=== PATIENT | male | born 1945 | race Caucasian/White ===

== ENCOUNTER 2022-11-26 06:31 | Day surgery (SDC) | payer MEDICARE, BC, SELFPAY ==
--- NOTE | 2022-11-26 06:02 | ANES.PREOP_ITS ---
General Info Date of Service Date Performed: 11/26/22 Height: 5 ft 10 in Weight: 81.647 kg Body Mass Index (BMI): 25.8 Surgical Procedure: Operation Date: 11/26/22 07:40 Proposed Procedure Side Surgeon p Cataract Extraction with IOL Implant Left Jered Merino MD Meds Allergies and Home Medications Allergies Allergy/AdvReac Type Severity Reaction Status Date / Time lisinopril Allergy Unknown Unverified 11/25/22 12:18 minoxidil Allergy Unknown Other (See Unverified 11/25/22 12:18 Comment) tacrolimus Allergy Unknown Unverified 11/25/22 12:18 Home Medication Medication Instructions Recorded apixaban 5 mg tablet (Eliquis) 2.5 mg PO BID 11/25/22 calcitriol 0.25 mcg capsule 0.25 mcg PO DIRECTED 11/25/22 calcium carbonate 500 mg calcium 1,000 mg PO TID 11/25/22 (1,250 mg) tablet carvedilol 25 mg tablet 25 mg PO BID 11/25/22 cholecalciferol (vitamin D3) 25 25 mcg PO DIRECTED 11/25/22 mcg (1,000 unit) tablet (Vitamin D3) cyanocobalamin (vitamin B-12) 1,000 mcg PO DAILY 11/25/22 1,000 mcg tablet,extended release icosapent ethyl 1 gram capsule 2 g PO BID 11/25/22 (Vascepa) lidocaine HCl 4 % topical patch 1 patch topical DAILY 11/25/22 losartan 25 mg tablet 25 mg PO DAILY 11/25/22 multivitamin 1 tab PO DAILY 11/25/22 pravastatin 10 mg tablet 10 mg PO DAILY 11/25/22 sertraline 100 mg tablet 100 mg PO DAILY 11/25/22 sodium bicarbonate 650 mg tablet 1,300 mg PO TID 11/25/22 triamcinolone acetonide 0.1 % 1 applic topical DIRECTED 11/25/22 topical cream Current Visit Medications: Current Medications Generic Name Dose Route Start Last Admin Trade Name Freq PRN Reason Stop Dose Admin Acetaminophen 1,000 mg 11/26/22 06:00 Acetaminophen 500 Mg Tab PO 12/26/22 05:59 Q4H PRN PRN Balanced Salt Solution 500 ml 11/26/22 06:00 Balanced Salt Soln.-Plus 500 Ml Bag OP 12/26/22 05:59 DIRECTED [facility] Miscellaneous Medication 0 ml 11/26/22 06:00 Prednisolone 1%, Moxifloxacin 0.5%, Nepafenac 0.1% 5ml Btl OS 12/26/22 05:59 DIRECTED [facility] Miscellaneous Medication 0 ml 11/26/22 06:00 Tropicam./Phenyleph. 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 Depressive disorder Diabetes mellitus Diastolic heart failure End stage renal disease Hypertensive disorder Hypertriglyceridemia Hypoalbuminemia Mild aortic regurgitation Mitral valve regurgitation mild-moderate Myocardial infarction 05/14/22 Nicotine dependence Overweight PAF (paroxysmal atrial fibrillation) Pericardial effusion Renal artery stenosis Smoker Surgical History Surgical History History of ankle surgery History of esophagogastroduodenoscopy (EGD) History of hip surgery History of thoracentesis Hx of cardiac catheterization 05/21/22 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 Tobacco Smoking/Tobacco Use Status: Former Tobacco Use Alcohol Alcohol Intake: former Substance Use Substance use: Never Substance use type: does not use Vital Signs and Lab Results Lab Results Blood Type / Crossmatch: No Data to Display Complete Blood Count: No Data to Display Complete Metabolic Panel: No Data to Display Liver Function Panel: No Data to Display Coagulation Panel: No Data to Display Cardiac Panel: No Data to Display Arterial Blood Gas: No Data to Display Venous Blood Gas: No Data to Display Pancreas Panel: No Data to Display Thyroid Panel: No Data to Display Infectious Disease: No Data to Display Blood Cultures: No Data to Display Toxicology Panel: No Data to Display Imaging and Studies Imaging and Studies Study information below may be from another EMR and interpreted by another provider. Please see original notes in EMR for more complete details. Echocardiogram Summary: 11/04/22 EF 58%, mild and AR Mild to mod MR Anesthesia Assessment and Plan Anesthesia History Personal History: No History of Anesthesia Complications Family History: No Family History of Anesthesia Complications Exercise Tolerance Exercise Tolerance: Metabolic Equivalents>4 Pertinent Negatives Pertinent Negatives: No Major Cardiovascular Symptoms or Complaints and No Major Pulmonary Symptoms or Complaints Cardiac & Pulmonary Exam Cardiac Exam: Normal S1/S2 Heart Sounds Pulmonary Exam: Clear Bilateral Breath Sounds Implantable Cardiac Device Does patient have a Pacemaker or an ICD?: No Airway Exam Known Difficult Airway: No Mallampati Class: 2 Mouth Opening: Normal (> 3cm) Thyromental Distance: Greater than 3 cm Neck Range of Motion: Full ROM Neck Circumference: Normal Teeth Condition: Normal Dentition and Removable Dentures/Plates Upper ASA Classification ASA Score: ASA 3 Emergency Case?: No NPO Status NPO Status: NPO Clears >2 hours, Solids >8 hours Anesthesia Plan Resuscitation Status: Full Code Anesthesia Technique: MAC Anesthesia Airway Planned: Natural Airway Monitors Used: Standard Monitors Preoperative Comments:: [place] with cardiac cath 05/21/22, pericardial effusion, stage 5 kidney disease with dialysis 3x/wk, liver transplant for ETOH cirrhosis 2013 MKO given
[2022-11-26 06:30] VITALS: BP 129/54; PULSE 56; RESP 18; TEMP 36.7; O2SAT 97
[2022-11-26] MEDS: Tropicam./Phenyleph. (1/2.5%) 5 ML BTL OS ×3 (06:50→07:00)
[2022-11-26 07:14] VITALS: BMI 25.8
[2022-11-26 07:26] VITALS: BP 129/54; PULSE 56; RESP 18; TEMP 36.7; O2SAT 97
[2022-11-26] MEDS: Tetracaine 0.5% 4 ML BTL OS (07:32)
[2022-11-26] MEDS: Duovisc Viscoelastic System EACH 1 EACH (07:35)
[2022-11-26] MEDS: Lidocaine 1% Pres-Free 5 ML VIAL (07:35)
[2022-11-26] MEDS: Phenylephrine/Lidocaine (15/10) MG/ML 1 ML VIAL (07:35)
[2022-11-26] MEDS: Balanced Salt Soln.-PLUS 500 ML BAG OP (07:35)
[2022-11-26] MEDS: Povidone-Iodine Ophth 30 ML BTL (07:37)
--- NOTE | 2022-11-26 08:03 | PDOC.DSDIS_ITS ---
Date of service: 11/26/22 Time of Service: 08:03 Discharge Plan Disposition Patient Disposition: Home Discharge Details Attending Provider: Jered Merino Primary Care Provider: Sd Art [place] Meds and New Rx's Prescriptions: No Action multivitamin Tablet 1 tab PO DAILY cyanocobalamin (vitamin B-12) 1,000 mcg Tablet Extended Release 1,000 mcg PO DAILY carvedilol 25 mg Tablet 25 mg PO BID sertraline 100 mg Tablet 100 mg PO DAILY triamcinolone acetonide 0.1 % Cream 1 applic TOPICAL DIRECTED pravastatin 10 mg Tablet 10 mg PO DAILY calcium carbonate [Calcium 500] 500 mg calcium (1,250 mg) Tablet 1,000 mg PO TID sodium bicarbonate 650 mg Tablet 1,300 mg PO TID losartan 25 mg Tablet 25 mg PO DAILY calcitriol 0.25 mcg Capsule 0.25 mcg PO DIRECTED cholecalciferol (vitamin D3) [Vitamin D3] 25 mcg (1,000 unit) Tablet 25 mcg PO DIRECTED icosapent ethyl [Vascepa] 1 gram Capsule 2 g PO BID Eliquis 5 mg Tablet 2.5 mg PO BID lidocaine HCl 4 % Adhesive Patch,Medicated 1 patch TOPICAL DAILY Discharge Instructions Stand Alone Forms: Post-op Topical Cataract, Gloria Tavares (DSU) Discharge Orders Discharge Orders: Discharge Order (Routine); Ordered 11/26/22 Ordered By: Jered Merino DS: Diagnosis Discharge Diagnosis (1) Posterior subcapsular age-related cataract of left eye: Status: Resolved (2) Cortical age-related cataract, left eye: Status: Resolved (3) Nuclear age-related cataract, left eye: Status: Resolved
[2022-11-26 08:04] VITALS: BP 117/41; PULSE 56; RESP 18; TEMP 36.8; O2SAT 97
--- NOTE | 2022-11-26 08:04 | ROE_ITS ---
Date of service: 11/26/22 Time of Service: 08:05 Operative Note Operative Note DATE OF PROCEDURE: 11/26/22 PRE-OP DIAGNOSIS: Nuclear/cortical/posterior subcapsular cataract, left eye Poorly dilating pupil, left eye POST-OP DIAGNOSIS: same PROCEDURE: Cataract extraction by phacoemulsification with intraocular lens implantation, left eye, with pupillary expansion device SURGEON: Jered Merino ANESTHESIA TYPE: Local By Surgeon and MAC Refer to Anesthesia Record ESTIMATED BLOOD LOSS: 0 PATHOLOGY: none sent COMPLICATIONS: None Patient was transported to: same day Patient's condition: stable Implants: [employer] / [employer] Tecnis Eyhance DIB00 Indications: Progressive decreased vision, left eye Poorly dilating pupil, left eye. Procedure Description: CATARACT SURGERY OPERATIVE REPORT PREOPERATIVE DIAGNOSIS: 1. Nuclear/cortical/posterior subcapsular cataract, left eye 2. Poorly dilating pupil, left eye POSTOPERATIVE DIAGNOSIS: Same OPERATION: 1. Cataract extraction using phacoemulsification with posterior chamber intraocular lens implant, left eye. 2. Pupillary dilation and iris stabilization using Malyugin Ring IOL; IOL Front Desk Agent/Model: [employer] / SUDHEER Tecnis Eyhance DIB00 IOL Power: + 22.5 diopters IOL Serial Number: [id number] Optic Diameter: 6.0 mm Haptic/Overall Diameter: 13.00 mm PHACO INFO: Stefan [employer]Net[employer]urion Vision System with OZil and Active [employer]uidics Cumulative Dispersed Energy (CDE): 7.62 seconds SURGEON: Jered Merino MD, DIPESH ANESTHESIA: Monitored Anesthesia Care (MAC), with local sub-tenon's anesthetic infiltration COMPLICATIONS: None SPECIMENS: None INDICATIONS FOR PROCEDURE: The patient is a 77-year-old male with history of diminished visual acuity in his left eye secondary to the development of nuclear/cortical/posterior subcapsular cataract. He is significantly symptomatic that he desires cataract surgery and attempt to improve and maximize his vision. The option of cataract surgery was offered to the patient and he wished to proceed. See office notes for detailed information. PROCEDURE: The correct surgical eye was identified and marked as the left eye and the pupil was dilated in the preoperative area using mydriatics, cycloplegics, and NSAIDS (except in aspirin allergic patients). The dilated pupil size was 3.0 mm. Oral sedation was administered in the form of an Imprimis MKO Melt (midazolam 3mg/ketamine 25mg/ondansetron 2mg). The patient was brought to the operating room where cardiopulmonary monitoring was instituted and surgical time-out was performed, confirming the correct operative eye and IOL power. Topical anesthesia was administered and ophthalmic povidone-iodine 5% was instilled into the conjunctival fornices. The radha-ocular area was prepped with Betadine 10% solution and draped in the usual sterile fashion for intraocular surgery, including an aperture drape. A Tegaderm transparent film dressing was cut in half and used to cover the lashes and lid margins. Care was taken to sequester the lashes and lid margins under the Tegaderm dressing. A lid speculum was placed between the lids of the operative eye and the Melissa-Antonia operating microscope was maneuvered into position. Cristóbal scissors were then used to make a conjunctival buttonhole approximately 6mm posterior to the limbus in the inferonasal quadrant. Blunt dissection was carried out to expose bare sclera, and a blunt-tipped sub-tenon?s anesthesia cannula was introduced and passed posteriorly along the globe where non- preserved plain lidocaine was injected into posterior sub-Tenon?s space. A sidep ort knife was used to make a paracentesis port superiorly/superiortemporally. Intraocular phenylephrine/lidocaine was injected into the anterior chamber. The anterior chamber was then filled with viscoelastic. A keratome knife was used to create a half-thickness groove at the limbus and then to construct a three- plane near-clear corneal tunnel extending 2.0mm into clear cornea at the temporal position. A 7.0 mm Malyugin Ring was then inserted into the pupillary space and engaged with the Kuglen hook. A flap was raised on the anterior capsule and capsulorhexis forceps were used to complete a continuous curvilinear capsulorhexis of 5.0 mm. Balanced salt solution was then used to perform cortical cleaving hydrodissection and nuclear hydrodelineation until the lens could be freely rotated within the capsular bag. The lens nucleus was then disassembled and removed within the capsular bag and iris plane using phacoemulsification. Residual cortical material was removed using the 45-degree angled silicone I/A tip with 0.3mm port. The posterior capsule was carefully polished to remove as much residual lens epithelial cells as safely possible. The capsular bag was then inflated and the anterior chamber deepened with viscoelastic. The lens implant described above was inserted into the capsular bag using the [employer] Simplicity Injector. A Kuglen hook was used to dial the IOL into position. The Malyugin Ring was removed in the reverse order of its insertion. Residual viscoelastic was then removed first from posterior to the IOL, then from the anterior chamber using the I/A handpiece. The lens implant was noted to center nicely within the capsular bag. The incisions were stromally hydrated, and the anterior chamber was reformed using BSS. Then 0.5cc of moxifloxacin 1.0mg/ml were injected into the capsular bag and anterior chamber. The incisions were checked with a Weck spear and found to be secure. Several drops of ophthalmic povidone-iodine 5% were then applied to the eye followed by two drops of Imprimis combination prednisolone/moxifloxacin/nepafenac solution. The drapes were removed and a clear plastic protective eye shield was placed over the eye. The patient was then returned to Same Day Surgery in stable condition.
[2022-11-26 08:12] VITALS: BP 129/54; PULSE 56; RESP 18; TEMP 36.7; O2SAT 97
--- NOTE | 2022-11-26 08:26 | W.ANESPOSTOP ---
Postoperative Evaluation Date, Time and Location Date Performed: 11/26/22 Time Performed: 08:14 Patient Location: Day Surgery Unit Vital Signs Most Recent Imported Vital Signs: Most Recent Vital Signs Temp Pulse Resp BP Pulse Ox 36.7 C 56 L 18 129/54 L 97 11/26/22 08:12 11/26/22 08:12 11/26/22 08:12 11/26/22 08:12 11/26/22 08:12 Assessment Mental Status: Awake (Alert & Oriented to Patient Baseline) Airway and Respiratory Function: Patent airway with normal (patient baseline) respiratory exam Cardiovascular Function: Hemodynamically Stable Hydration Status: Adequately Hydrated Nausea & Vomiting: No Nausea or Vomiting Pain: Pt. Denies Any Pain Peripheral Nerve Block: Patient did not receive a nerve block
[2022-11-26 08:30] VITALS: BP 114/57; PULSE 57; RESP 18; TEMP 36.8; O2SAT 96
== END 2022-11-26 08:44 | disposition home or self-care (01) ==
LOC: SUR 06:31
PROVIDERS: PCP Internal Medicine; Visit Provider Ophthalmology
PROC: (CPT 66982; principal; 2022-11-26 07:30)
DX: H25.042 Posterior subcapsular polar age-related cataract, left eye (principal); H25.012 Cortical age-related cataract, left eye; H25.12 Age-related nuclear cataract, left eye; F17.210 Nicotine dependence, cigarettes, uncomplicated; I10 Essential (primary) hypertension
CPT/HCPCS: 66982; V2632

== ENCOUNTER 2022-12-10 06:33 | Day surgery (SDC) | payer MEDICARE, BC, SELFPAY ==
[2022-12-10 06:40] VITALS: BP 137/49; PULSE 59; RESP 16; TEMP 36.4; O2SAT 96
[2022-12-10] MEDS: Tropicam./Phenyleph. (1/2.5%) 5 ML BTL OD ×3 (06:57→07:10)
--- NOTE | 2022-12-10 07:06 | W.ANESPRE ---
General Info Date of Service Date Performed: 12/10/22 Height: 5 ft 10 in Weight: 81.7 kg Body Mass Index (BMI): 25.8 Surgical Procedure: Operation Date: 12/10/22 07:40 Proposed Procedure Side Surgeon p Cataract Extraction with IOL Implant Right Jered Merino MD Meds Allergies and Home Medications Allergies Allergy/AdvReac Type Severity Reaction Status Date / Time lisinopril Allergy Unknown unknown Unverified 12/10/22 06:49 minoxidil Allergy Unknown unknown Unverified 12/10/22 06:49 tacrolimus Allergy Unknown liver Unverified 12/10/22 06:49 failure Home Medication Medication Instructions Recorded apixaban 5 mg tablet (Eliquis) 2.5 mg PO BID 11/25/22 calcitriol 0.25 mcg capsule 0.25 mcg PO DIRECTED 11/25/22 calcium carbonate 500 mg calcium 1,000 mg PO TID 11/25/22 (1,250 mg) tablet carvedilol 25 mg tablet 25 mg PO BID 11/25/22 cholecalciferol (vitamin D3) 25 25 mcg PO DIRECTED 11/25/22 mcg (1,000 unit) tablet (Vitamin D3) cyanocobalamin (vitamin B-12) 1,000 mcg PO DAILY 11/25/22 1,000 mcg tablet,extended release icosapent ethyl 1 gram capsule 2 g PO BID 11/25/22 (Vascepa) lidocaine HCl 4 % topical patch 1 patch topical DAILY 11/25/22 losartan 25 mg tablet 25 mg PO DAILY 11/25/22 multivitamin 1 tab PO DAILY 11/25/22 pravastatin 10 mg tablet 10 mg PO DAILY 11/25/22 sertraline 100 mg tablet 100 mg PO DAILY 11/25/22 sodium bicarbonate 650 mg tablet 1,300 mg PO TID 11/25/22 triamcinolone acetonide 0.1 % 1 applic topical DIRECTED 11/25/22 topical cream Current Visit Medications: Current Medications Generic Name Dose Route Start Last Admin Trade Name Freq PRN Reason Stop Dose Admin Acetaminophen 1,000 mg 12/10/22 06:00 Acetaminophen 500 Mg Tab PO 01/09/23 05:59 Q4H PRN PRN Balanced Salt Solution 500 ml 12/10/22 06:00 Balanced Salt Soln.-Plus 500 Ml Bag OP 01/09/23 05:59 DIRECTED [facility] Miscellaneous Medication 0 ml 07/28/23 06:00 Prednisolone 1%, Moxifloxacin 0.5%, Nepafenac 0.1% 5ml Btl OD 01/09/23 05:59 DIRECTED [facility] Miscellaneous Medication 0 ml 12/10/22 06:00 12/10/22 07:03 Tropicam./Phenyleph. (1/2.5%) 5 Ml Btl OD 01/09/23 05:59 1 drp DIRECTED [facility] Administration Tetracaine HCl 0 ml 12/10/22 06:00 Tetracaine 0.5% 4 Ml Btl OD 01/09/23 05:59 DIRECTED [facility] PFSH Active Problems Active Problems: Problem Status Onset Code Cortical age-related cataract, right eye H25.011 Posterior subcapsular age-related cataract, right eye H25.041 Nuclear age-related cataract, right eye H25.11 Posterior subcapsular age-related cataract of left eye H25.042 Cortical age-related cataract, left eye H25.012 Nuclear age-related cataract, left eye H25.12 Medical History Medical History Acute pulmonary edema Acute respiratory failure Anemia Aortic stenosis, mild Chronic kidney disease, stage 5 Coronary arteriosclerosis Dependence on renal dialysis M-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 Depressive disorder Diabetes mellitus Diastolic heart failure End stage renal disease Hypertensive disorder Hypertriglyceridemia Hypoalbuminemia Mild aortic regurgitation Mitral valve regurgitation mild-moderate Myocardial infarction 05/14/22 Nicotine dependence Overweight PAF (paroxysmal atrial fibrillation) Pericardial effusion Renal artery stenosis Smoker Surgical History Surgical History History of ankle surgery History of esophagogastroduodenoscopy (EGD) History of hip surgery History of thoracentesis Hx of cardiac catheterization 05/21/22 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 Tobacco Smoking/Tobacco Use Status: Former Tobacco Use Alcohol Alcohol Intake: former Substance Use Substance use: Never Substance use type: does not use Vital Signs and Lab Results Vital Signs Most Recent Vital Signs in EMR: Most Recent Vital Signs Temp Pulse Resp BP Pulse Ox 36.4 C L 59 L 16 137/49 L 96 12/10/22 06:40 12/10/22 06:40 12/10/22 06:40 12/10/22 06:40 12/10/22 06:40 Lab Results Blood Type / Crossmatch: No Data to Display Complete Blood Count: No Data to Display Complete Metabolic Panel: No Data to Display Liver Function Panel: No Data to Display Coagulation Panel: No Data to Display Cardiac Panel: No Data to Display Arterial Blood Gas: No Data to Display Venous Blood Gas: No Data to Display Pancreas Panel: No Data to Display Thyroid Panel: No Data to Display Infectious Disease: No Data to Display Blood Cultures: No Data to Display Toxicology Panel: No Data to Display Imaging and Studies Imaging and Studies Study information below may be from another EMR and interpreted by another provider. Please see original notes in EMR for more complete details. Echocardiogram Summary: 11/04/22 EF 58%, mild and AR Mild to mod MR Anesthesia Assessment and Plan Anesthesia History Personal History: No History of Anesthesia Complications Family History: No Family History of Anesthesia Complications Exercise Tolerance Exercise Tolerance: Metabolic Equivalents<4 Pertinent Negatives Pertinent Negatives: No Major Cardiovascular Symptoms or Complaints and No Major Pulmonary Symptoms or Complaints Cardiac & Pulmonary Exam Cardiac Exam: Normal S1/S2 Heart Sounds Pulmonary Exam: Clear Bilateral Breath Sounds Implantable Cardiac Device Does patient have a Pacemaker or an ICD?: No Airway Exam Known Difficult Airway: No Mallampati Class: 2 Mouth Opening: Normal (> 3cm) Thyromental Distance: Greater than 3 cm Neck Range of Motion: Full ROM Neck Circumference: Normal Teeth Condition: Normal Dentition and Removable Dentures/Plates Upper ASA Classification ASA Score: ASA 3 Emergency Case?: No NPO Status NPO Status: NPO Clears >2 hours, Solids >8 hours Anesthesia Plan Resuscitation Status: Full Code Anesthesia Technique: MAC Anesthesia Airway Planned: Natural Airway Monitors Used: Standard Monitors Preoperative Comments:: [place] with cardiac cath 05/21/22, pericardial effusion, stage 5 kidney disease with dialysis 3x/wk, liver transplant for ETOH cirrhosis 2013
[2022-12-10 07:19] VITALS: BMI 25.8
[2022-12-10] MEDS: Tetracaine 0.5% 4 ML BTL OD (07:19)
[2022-12-10] MEDS: Povidone-Iodine Ophth 30 ML BTL (07:20)
[2022-12-10] MEDS: Balanced Salt Soln.-PLUS 500 ML BAG OP (07:27)
[2022-12-10] MEDS: Lidocaine 1% Pres-Free 5 ML VIAL (07:27)
[2022-12-10] MEDS: Phenylephrine/Lidocaine (15/10) MG/ML 1 ML VIAL (07:28)
[2022-12-10] MEDS: Duovisc Viscoelastic System EACH 1 EACH (07:28)
[2022-12-10 08:06] VITALS: BP 139/49; PULSE 59; RESP 16; TEMP 37.1; O2SAT 95
--- NOTE | 2022-12-10 08:06 | W.PM.DSUDISC ---
Date of service: 12/10/22 Time of Service: 08:06 Discharge Plan Disposition Patient Disposition: Home Discharge Details Attending Provider: Jered Merino Primary Care Provider: dS Art [place] Meds and New Rx's Prescriptions: No Action multivitamin Tablet 1 tab PO DAILY cyanocobalamin (vitamin B-12) 1,000 mcg Tablet Extended Release 1,000 mcg PO DAILY carvedilol 25 mg Tablet 25 mg PO BID sertraline 100 mg Tablet 100 mg PO DAILY triamcinolone acetonide 0.1 % Cream 1 applic TOPICAL DIRECTED pravastatin 10 mg Tablet 10 mg PO DAILY calcium carbonate [Calcium 500] 500 mg calcium (1,250 mg) Tablet 1,000 mg PO TID sodium bicarbonate 650 mg Tablet 1,300 mg PO TID losartan 25 mg Tablet 25 mg PO DAILY calcitriol 0.25 mcg Capsule 0.25 mcg PO DIRECTED cholecalciferol (vitamin D3) [Vitamin D3] 25 mcg (1,000 unit) Tablet 25 mcg PO DIRECTED icosapent ethyl [Vascepa] 1 gram Capsule 2 g PO BID Eliquis 5 mg Tablet 2.5 mg PO BID lidocaine HCl 4 % Adhesive Patch,Medicated 1 patch TOPICAL DAILY Discharge Instructions Stand Alone Forms: Post-op Topical Cataract, Gloria Tavares ([facility]) Discharge Orders Discharge Orders: Discharge Order (Routine); Ordered 12/10/22 Ordered By: Jered Merino DS: Diagnosis Discharge Diagnosis (1) Cortical age-related cataract, right eye: Status: Resolved (2) Posterior subcapsular age-related cataract, right eye: Status: Resolved (3) Nuclear age-related cataract, right eye: Status: Resolved
--- NOTE | 2022-12-10 08:07 | W.PM.OP ---
Date of service: 12/10/22 Time of Service: 08:07 Operative Note Operative Note DATE OF PROCEDURE: 12/10/22 PRE-OP DIAGNOSIS: Nuclear/cortical/posterior subcapsular cataract, right eye Poorly dilating pupil, right eye POST-OP DIAGNOSIS: same PROCEDURE: 1. Cataract extraction by phacoemulsification with intraocular lens implantation, right eye, with pupillary expansion device SURGEON: Jered Merino ANESTHESIA TYPE: Local By Surgeon and MAC Refer to Anesthesia Record PATHOLOGY: none sent COMPLICATIONS: None Patient was transported to: same day Patient's condition: stable Implants: [employer]ble [employer]ble Tecnis Eyhance DIB00 Indications: Progressive decreased vision due to cataract, right eye, with poorly dilating pupil Procedure Description: CATARACT SURGERY OPERATIVE REPORT PREOPERATIVE DIAGNOSIS: 1. Nuclear/cortical/posterior subcapsular cataract, right eye 2. Poorly dilating pupil, right eye POSTOPERATIVE DIAGNOSIS: Same OPERATION: 1. Cataract extraction using phacoemulsification with posterior chamber intraocular lens implant, right eye. 2. Pupillary dilation and iris stabilization using Malyugin Ring IOL: IOL Eviction Specialist/Model: Humble [employer] Humble Tecnis Eyhance DIB00 IOL Power: + 22.5 diopters IOL Serial Number: [id number] Optic Diameter: 6.0mm Haptic/Overall Diameter: 13.0mm PHACO INFO: Stefan [employer] Diagnosticsurion Vision System with OZil and Active Fluidics Cumulative Dispersed Energy (CDE): 11.59 seconds SURGEON: Jered Merino MD, DIPESH ANESTHESIA: Monitored Anesthesia Care (MAC), with local sub-tenon's anesthetic infiltration COMPLICATIONS: None SPECIMENS: None INDICATIONS FOR PROCEDURE: The patient is a 77-year-old gentleman with history of diminished visual acuity in both eyes secondary to the development of bilateral nuclear/cortical/posterior subcapsular cataract. He has very poorly dilating pupils. He has already undergone cataract surgery in the left eye and is doing well postoperatively. He now presents for cataract surgery in the right eye. See office notes for detailed information. PROCEDURE: The correct surgical eye was identified and marked as the right eye and the pupil was dilated in the preoperative area using mydriatics and cycloplegics. The dilated pupil size was 3.0 mm. Oral sedation was administered in the form of one half of an Imprimis MKO Melt (midazolam 3mg/ketamine 25mg/ondansetron 2mg). The patient was brought to the operating room where cardiopulmonary monitoring was instituted and surgical time-out was performed, confirming the correct operative eye and IOL power. Topical anesthesia was administered and ophthalmic povidone-iodine 5% was instilled into the conjunctival fornices. Tthe radha-ocular area was prepped with Betadine 10% solution and draped in the usual sterile fashion for intraocular surgery, including an aperture drape. A Tegaderm transparent film dressing was cut in half and used to cover the lashes and lid margins. Care was taken to sequester the lashes and lid margins under the Tegaderm dressing. A lid speculum was placed between the lids of the operative eye and the Stefan Lux[employer] Revalia operating microscope was maneuvered into position. Cristóbal scissors were then used to make a conjunctival buttonhole approximately 6mm posterior to the limbus in the inferonasal quadrant. Blunt dissection was carried out to expose bare sclera, and a blunt-tipped sub-tenon?s anesthesia cannula was introduced and passed posteriorly along the globe where non-preserved plain lidocaine was injected into posterior sub-Tenon?s space. A sideport knife was used to make a paracentesis port. Intraocular phenylephrine/lidocaine was injected in the anterior chamber. The anterior chamber was filled with viscoelastic. A keratome knife was used to construct a 2-plane near-clear corneal tunnel extending 2.0mm into clear cornea. A 7.0 mm Malyugin Ring was then inserted into the pupillary space and engaged with the Kuglen hook. A flap was raised on the anterior capsule and capsulorhexis forceps were used to complete a continuous curvilinear capsulorhexis of 5.0 mm. Balanced salt solution was then used to perform cortical cleaving hydrodissection and nuclear hydrodelineation until the lens could be freely rotated within the capsular bag. The lens nucleus was then disassembled and removed within the capsular bag and iris plane using phacoemulsification. Residual cortical material was removed using the irrigation/aspiration handpiece. The posterior capsule was carefully polished to remove as much residual lens epithelial cells as safely possible. The capsular bag was then inflated and the anterior chamber deepened with viscoelastic. The lens implant described above was inserted into the capsular bag using the Humble and Humble Simplicity pre-loaded injector. A Kuglen hook was used to dial the IOL into position. The Malyugin Ring was removed in the reverse order of its insertion. Residual viscoelastic was then removed first from posterior to the IOL, then from the anterior chamber using the I/A handpiece. The lens implant was noted to center nicely within the capsular bag. The incisions were stromally hydrated, and the anterior chamber was reformed using BSS. Then 0.5cc of moxifloxacin 1.0mg/ml were injected into the capsular bag and anterior chamber. The incisions were checked with a Weck spear and found to be secure. Several drops of ophthalmic povidone-iodine 5% were then applied to the eye followed by two drops of Imprimis combination prednisolone/moxifloxacin/nepafenac solution. The drapes were removed and a clear plastic protective eye shield was placed over the eye. The patient was then returned to [facility] Day Surgery in stable condition.
[2022-12-10 08:27] VITALS: BP 131/46; PULSE 56; RESP 18; TEMP 37.1; O2SAT 96
--- NOTE | 2022-12-10 08:27 | W.ANESPOSTOP ---
Postoperative Evaluation Date, Time and Location Date Performed: 12/10/22 Time Performed: 08:16 Patient Location: Day Surgery Unit Vital Signs Most Recent Imported Vital Signs: Most Recent Vital Signs Temp Pulse Resp BP Pulse Ox 37.1 C 59 L 16 139/49 L 95 12/10/22 08:06 12/10/22 08:06 12/10/22 08:06 12/10/22 08:06 12/10/22 08:06 Pain Score Most Recent Pain Score: Most Recent Pain Score Pain Level 0 12/10/22 08:06 Assessment Mental Status: Awake (Alert & Oriented to Patient Baseline) Airway and Respiratory Function: Patent airway with normal (patient baseline) respiratory exam Cardiovascular Function: Hemodynamically Stable Hydration Status: Adequately Hydrated Nausea & Vomiting: No Nausea or Vomiting Pain: Pt. Denies Any Pain Peripheral Nerve Block: Patient did not receive a nerve block
== END 2022-12-10 08:37 | disposition home or self-care (01) ==
LOC: SUR 06:33
PROVIDERS: PCP Internal Medicine; Visit Provider Ophthalmology
PROC: (CPT 66982; principal; 2022-12-10 07:30)
DX: H25.011 Cortical age-related cataract, right eye (principal); H25.041 Posterior subcapsular polar age-related cataract, right eye; H25.11 Age-related nuclear cataract, right eye
CPT/HCPCS: 66982; V2632

== ENCOUNTER 2025-05-04 18:51 | Emergency (ER) | payer MEDICARE, BC, SELFPAY ==
[2025-05-04] VITALS (34 sets, daily range): BP systolic 107–134; BP diastolic 32–58; PULSE 73–80; RESP 11–24; TEMP 36.7; O2SAT 90–100
--- NOTE | 2025-05-04 18:55 | DI.RAD_ITS ---
Exam(s) XR PORTABLE CHEST AP EXAM: XR PORTABLE CHEST AP CLINICAL HISTORY: fever TECHNIQUE: 2D digital imaging was performed of the chest. One image was obtained. An AP view was obtained. COMPARISON: No exams were available for comparison FINDINGS: MEDIASTINUM: Normal. HEART: The heart is enlarged. PULMONARY VASCULATURE: Normal. LUNGS: There are no focal consolidating infiltrates. There is a question of mild increased interstitial markings in the right lung base. PLEURAL SPACE: No pleural effusion or pneumothorax. BONE:Within normal limits for the patient's age. OTHER FINDINGS:Normal. IMPRESSION: 1. There are no focal consolidating infiltrates. 2. Question of mild increased markings in the right lung base. This may represent interstitial edema, aspiration or developing pneumonia. Follow-up as clinically appropriate. 3. Mild cardiomegaly. 4. The preliminary [facility] report was reviewed. DATA REPOSITORY: RADIATION DOSE DELIVERED:
[2025-05-04 20:12] LABS: Abs Immature Grans 0.02 10^3/uL (0.0-0.06); HCT 36.4 % (40.0-50.0); HGB 11.3 g/dL (13.5-17.5); Immature Grans % 0.3 %; MCH 29.3 pg (27.0-33.0); MCHC 31.0 % (32.0-36.0); MCV 94 fL (80-95); MPV 11.2 fL (8.0-11.0); Platelet Count 134 10^3/uL (130-400); RBC 3.86 10^6/uL (4.36-5.78); RDW 17.2 % (11.8-14.1); RDW-SD 59.1 fL; WBC 7.45 10^3/uL (4.4-10.8)
[2025-05-04 20:34] LABS: Lipase 19 U/L (<53)
[2025-05-04 20:36] LABS: ALT 15 U/L (10-49); AST 31 U/L (<34); Albumin 4.1 g/dL (3.2-5.0); Alkaline Phosphatase 140 U/L (46-116); Anion Gap 11.2 mmol/L (3-11); BUN 34 mg/dL (9-23); Bilirubin, Total 1.4 mg/dL (0.2-1.2); CO2 30.1 mmol/L (20.0-31.0); Calcium 9.3 mg/dL (8.3-10.6); Chloride 98 mmol/L (98-107); Glucose 107 mg/dL (74-106); Potassium 4.7 mmol/L (3.5-5.1); Sodium 139 mmol/L (136-145); Total Protein 7.7 g/dL (5.7-8.2)
[2025-05-04 20:41] LABS: Troponin I 62 ng/L (<54)
[2025-05-04 20:57] LABS: INR 1.5 (0.9-1.1); PTT Activated 32.1 sec (20.6-30.2); Prothrombin Time 14.4 sec (9.1-11.1)
--- NOTE | 2025-05-04 21:01 | DI.[facility]_ITS ---
PROCEDURE INFORMATION: Exam: XR Chest Exam date and time: 05/04/2025 8:06 PM Age: 79 years old Clinical indication: Fever TECHNIQUE: Imaging protocol: Radiologic exam of the chest. Views: 1 view. COMPARISON: No relevant prior studies available. FINDINGS: Lungs: Trace airspace opacities are present within the right mid lung. No focal consolidation. Pleural spaces: No pleural effusion or pneumothorax. Heart/Mediastinum: The cardiac silhouette is enlarged. Bones/joints: Unremarkable. IMPRESSION: 1. Enlarged cardiac silhouette. Differential considerations include cardiomegaly and pericardial effusion. 2. Trace right mid lung airspace opacities which may represent early pneumonia or aspiration. Dictated and Authenticated by: Jessi Coreas MD. Orderin Janki Leger MD
--- NOTE | 2025-05-04 21:04 | W.ED.GENAD ---
Discharge Plan Discharge Details Chief Complaint: Nausea/Vomit/Diar Clinical Impression: Abdominal pain, Diarrhea, Chronic wound Primary Care Provider: [facility] ED Provider: Arsen Shearer Home Meds and New Rx's Prescriptions: No Action multivitamin Tablet 1 tab PO DAILY cyanocobalamin (vitamin B-12) 1,000 mcg Tablet Extended Release 1,000 mcg PO DAILY carvedilol 25 mg Tablet 25 mg PO BID sertraline 100 mg Tablet 100 mg PO DAILY triamcinolone acetonide 0.1 % Cream 1 applic TOPICAL DIRECTED pravastatin 10 mg Tablet 10 mg PO DAILY calcium carbonate [Calcium 500] 500 mg calcium (1,250 mg) Tablet 1,000 mg PO TID sodium bicarbonate 650 mg Tablet 1,300 mg PO TID calcitriol 0.25 mcg Capsule 0.25 mcg PO DIRECTED cholecalciferol (vitamin D3) [Vitamin D3] 25 mcg (1,000 unit) Tablet 25 mcg PO DIRECTED icosapent ethyl [Vascepa] 1 gram Capsule 2 g PO BID Eliquis 5 mg Tablet 2.5 mg PO BID lidocaine HCl 4 % Adhesive Patch,Medicated 1 patch TOPICAL DAILY nitroglycerin 0.4 mg tablet, sublingual 0.4 mg sublingual Q5-15M PRN Rx Instructions: do not exceed 3 doses per episode magnesium 200 mg tablet 200 mg PO DAILY atorvastatin [Lipitor] 40 mg tablet 40 mg PO DAILY metoprolol tartrate [Lopressor] 50 mg tablet 50 mg PO DAILY HPI General Date/Time Provider Initiated Documentation: 05/04/25 18:54. HPI Narrative: MDM/Narrative: 79-year-old male with multiple medical problems including liver transplant in 2013, CHF, PVD with chronic wound of the left foot, and known intracardiac thrombus, presents for evaluation nausea vomiting diarrhea times yesterday. Vital signs notable for borderline hypotension given his significantly decreased diastolic blood pressure. Physical exam notable for a chronic wound at the base of the first phalanx of the left foot which is clean dry and intact, with exudate however no surrounding erythema, significant tenderness, induration or increased calor to suggest acute infection. Patient does have notable left lower extremity mild pitting edema as when compared to the right lower extremity. However most importantly, patient has diffuse significant tenderness of his abdomen. Given his known history of liver transplant, and chart review showing ascites being present on multiple CAT scans over the past year, concern for spontaneous bacterial peritonitis. In addition to this there is also concern for other etiologies of infectious pathology, to include viral syndrome, and less likely an infected chronic wound given exam today. Will obtain screening labs including CBC, CMP, viral panel, and perform CAT scan of the chest abdomen pelvis to assess for possible causes of patient's symptoms. ED course: Labs are notable for no leukocytosis however patient does have lymphocytic predominance. Surprisingly however, viral panel is negative. No leukocytosis makes me even less suspicious for active soft tissue infection of the patient's chronic wound, however given persistent abdominal tenderness, I am concerned for possible spontaneous bacterial peritonitis. CT imaging shows and worse ascitic burden, and no other obvious cause of the patient's abdominal tenderness. Paracentesis was performed, fluid samples obtained, will send for processing, with plan for admission if there is evidence of SBP.. Patient care was signed over to Dr. Simmons pending fluid sample analysis, and disposition. Clinical impression: Generalized abdominal pain Concern for spontaneous bacterial peritonitis Disposition: Pending HPI: 79-year-old male multiple medical comorbidities including liver transplant in 2013, CHF, PVD with chronic wound of the left foot, and known intracardiac thrombus, presents with his family for evaluation of of nausea, vomiting and diarrhea which began yesterday. Patient's daughters note there quite concerned as the patient has been followed by vascular surgery at [facility], and during an appointment as an outpatient several days ago they were instructed to bring him to the emergency department should he develop any signs that his chronic foot wound may be had become infected such as viral symptoms, which began yesterday. They note a low-grade fever, multiple bouts of diarrhea, and 1 episode of nausea and vomiting. They deny any associated cough, runny nose, sore throat, body aches or any other new or concerning symptoms. ROS: Negative besides as mentioned above Exam: Gen: A&O NAD HEENT: NCAT, EOMI, not icteric. External ears normal. No rhinorrhea. Moist mucous membranes. Distended periorbital veins bilaterally Neck: Supple, full range of motion, no observable masses, No meningeal sign. Lungs: No Respiratory distress. CV: RRR, no edema. Abdomen: Diffusely tense to palpation, mildly distended MSK: No joint swelling, no redness. Skin: There are multiple chronic ulcers of the digits of the bilateral feet, there is a approximately 6 cm in longest diameter ovoid ulceration medial aspect of the forefoot extending to the base of the first digit of the left foot, with minimal exudate, no surrounding erythema, induration, or fluctuance. Neuro: Normal Gait, Grossly intact. Psych: Appropriate for situation. Labs: 05/04/25 20:23 Blood Blood Culture - Pending 05/04/25 20:05 Blood Blood Culture - Pending Laboratory Tests Range/Units 05/04/25 05/04/25 05/04/25 19:57 20:05 20:22 WBC (4.4-10.8) 10^3/uL 7.45 RBC (4.36-5.78) 10^6/uL 3.86 L Hgb (13.5-17.5) g/dL 11.3 L Hct (40.0-50.0) % 36.4 L MCV (80-95) fL 94 MCH (27.0-33.0) pg 29.3 MCHC (32.0-36.0) % 31.0 L RDW (11.8-14.1) % 17.2 H Plt Count (130-400) 10^3/uL 134 MPV (8.0-11.0) fL 11.2 H Immature Gran % % 0.3 Neutrophils % % 86.0 Lymphocytes % % 7.4 Monocytes % % 5.6 Eosinophils % % 0.3 Basophils % % 0.4 Nucleated RBC % (0.0-0.3) % 0.0 Absolute Neutrophils (1.2-6.7) 10^3/uL 6.41 Absolute Lymphocytes (1.2-3.4) 10^3/uL 0.55 L Absolute Monocytes (0.1-0.8) 10^3/uL 0.42 Absolute Eosinophils (0.0-0.7) 10^3/uL 0.02 Absolute Basophils (0.0-0.2) 10^3/uL 0.03 PT Cancelled INR Cancelled APTT Cancelled VBG Lactate (<or=2.0) mmol/L 1.6 Sodium (136-145) mmol/L 139 Potassium (3.5-5.1) mmol/L 4.7 Chloride (98-107) mmol/L 98 Carbon Dioxide (20.0-31.0) mmol/L 30.1 Anion Gap (3-11) mmol/L 11.2 H BUN (9-23) mg/dL 34 H Creatinine (0.73-1.18) mg/dL 3.21 H Est GFR (CKD-EPI 2020) (mL/min/1.73m2) 18.83 Glucose (74-106) mg/dL 107 H Calcium (8.3-10.6) mg/dL 9.3 Total Bilirubin (0.2-1.2) mg/dL 1.4 H AST (<34) U/L 31 ALT (10-49) U/L 15 Alkaline Phosphatase (46-116) U/L 140 H Troponin I (<54) ng/L 62 H* Total Protein (5.7-8.2) g/dL 7.7 Albumin (3.2-5.0) g/dL 4.1 Lipase (<53) U/L 19 Stl C.difficile Tox PCR (Negative) Negative COVID-19 Source Nasopharynx SARS-CoV-2 (PCR) (Negative) Negative Influenza Type A (PCR) (Negative) Negative Influenza Type B (PCR) (Negative) Negative RSV (PCR) (Negative) Negative ABO/Rh B Positive Antibody Screen NEGATIVE Range/Units 05/04/25 05/04/25 20:23 21:09 WBC (4.4-10.8) 10^3/uL RBC (4.36-5.78) 10^6/uL Hgb (13.5-17.5) g/dL Hct (40.0-50.0) % MCV (80-95) fL MCH (27.0-33.0) pg MCHC (32.0-36.0) % RDW (11.8-14.1) % Plt Count (130-400) 10^3/uL MPV (8.0-11.0) fL Immature Gran % % Neutrophils % % Lymphocytes % % Monocytes % % Eosinophils % % Basophils % % Nucleated RBC % (0.0-0.3) % Absolute Neutrophils (1.2-6.7) 10^3/uL Absolute Lymphocytes (1.2-3.4) 10^3/uL Absolute Monocytes (0.1-0.8) 10^3/uL Absolute Eosinophils (0.0-0.7) 10^3/uL Absolute Basophils (0.0-0.2) 10^3/uL PT 14.4 H INR 1.5 H APTT 32.1 H VBG Lactate (<or=2.0) mmol/L Sodium (136-145) mmol/L Potassium (3.5-5.1) mmol/L Chloride (98-107) mmol/L Carbon Dioxide (20.0-31.0) mmol/L Anion Gap (3-11) mmol/L BUN (9-23) mg/dL Creatinine (0.73-1.18) mg/dL Est GFR (CKD-EPI 2020) (mL/min/1.73m2) Glucose (74-106) mg/dL Calcium (8.3-10.6) mg/dL Total Bilirubin (0.2-1.2) mg/dL AST (<34) U/L ALT (10-49) U/L Alkaline Phosphatase (46-116) U/L Troponin I (<54) ng/L 63 H* Total Protein (5.7-8.2) g/dL Albumin (3.2-5.0) g/dL Lipase (<53) U/L Stl C.difficile Tox PCR (Negative) COVID-19 Source SARS-CoV-2 (PCR) (Negative) Influenza Type A (PCR) (Negative) Influenza Type B (PCR) (Negative) RSV (PCR) (Negative) ABO/Rh Antibody Screen Radiology: PROCEDURE INFORMATION: Exam: XR Chest Exam date and time: 05/04/2025 8:06 PM Age: 79 years old Clinical indication: Fever TECHNIQUE: Imaging protocol: Radiologic exam of the chest. Views: 1 view. COMPARISON: No relevant prior studies available. FINDINGS: Lungs: Trace airspace opacities are present within the right mid lung. No focal consolidation. Pleural spaces: No pleural effusion or pneumothorax. Heart/Mediastinum: The cardiac silhouette is enlarged. Bones/joints: Unremarkable. IMPRESSION: 1. Enlarged cardiac silhouette. Differential considerations include cardiomegaly and pericardial effusion. 2. Trace right mid lung airspace opacities which may represent early pneumonia or aspiration. Thank you for allowing us to participate in the care of your patient. Dictated and Authenticated by: Jessi Coreas MD PROCEDURE INFORMATION: Exam: CT Chest With Contrast; Diagnostic Exam date and time: 05/04/2025 10:07 PM Age: 79 years old Clinical indication: Other: Epigastric pain; Other: Questionable infiltrate on cxr TECHNIQUE: Imaging protocol: Diagnostic computed tomography of the chest with contrast. 3D rendering (Not supervised by radiologist): MIP and/or 3D reconstructed images were created by the technologist. Contrast material: OMNIPAQUE 350; Contrast volume: 75 ml; Contrast route: INTRAVENOUS (IV); COMPARISON: CR XR PORTABLE CHEST AP 05/04/2025 8:06 PM FINDINGS: Lungs: The left lung is clear. Compressive atelectasis is present at the right lung base. Trace atelectasis is present in the dependent aspect of the right upper lobe. No airspace consolidation. No patchy airspace opacities correlate with the questionable findings on the comparison plain film from earlier today. Pleural spaces: There is a moderate-sized low-density right pleural effusion. Heart: The heart is markedly enlarged. Coronary arteries: There are scattered atheromatous coronary artery calcifications. Lymph nodes: No enlarged lymph nodes. Vasculature: Atheromatous calcifications are present within the visualized thoracic aorta. Bones/joints: Unremarkable. No acute fracture. Soft tissues: Unremarkable. IMPRESSION: 1. Moderate right pleural effusion and compressive atelectasis. JERED BURTON Preliminary Radiology Report Page 2 of 3 2. No acute pulmonary consolidation or patchy airspace opacities. PROCEDURE INFORMATION: Exam: CT Abdomen And Pelvis With Contrast Exam date and time: 05/04/2025 10:07 PM Age: 79 years old Clinical indication: Other: Epigastric pain; Other: Questionable infiltrate on cxr TECHNIQUE: Imaging protocol: Computed tomography of the abdomen and pelvis with contrast. 3D rendering (Not supervised by radiologist): MIP and/or 3D reconstructed images were created by the technologist. Contrast material: OMNIPAQUE 350; Contrast volume: 75 ml; Contrast route: INTRAVENOUS (IV); COMPARISON: CR XR PORTABLE CHEST AP 05/04/2025 8:06 PM FINDINGS: Liver: The liver has a normal appearance. Gallbladder and biliary ducts: The gallbladder is surgically absent. Pancreas: The pancreas is atrophic. Spleen: The spleen measures 13.1 cm in length. Adrenal glands: The adrenal glands have a normal appearance. Kidneys and ureters: The kidneys are severely atrophic. Stomach and bowel: The bowel demonstrates overall normal caliber and wall thickness. Appendix: The appendix is thin walled. Intraperitoneal space: There is a [id number] amount of abdominal ascites. Vasculature: There are dense atheromatous calcifications throughout the aorta and iliac arteries. Lymph nodes: No enlarged lymph nodes. Urinary bladder: The bladder is decompressed. Reproductive: Unremarkable as visualized. Bones/joints: Bones have a normal appearance. No acute fracture or suspicious bone lesion. Soft tissues: There is a small fat containing left inguinal hernia. IMPRESSION: 1. Large volume ascites. This finding in conjunction with right pleural effusion and cardiomegaly suggest congestive failure. 2. No other acute intra-abdominal findings. 3. Normal appendix. Thank you for allowing us to participate in the care of your patient. NASNYDIA JERED Preliminary Radiology Report ETHNIC ORIGINS TEACHER (QA) DISCREPANCY? If there is a discrepancy between the preliminary and final interpretation, please notify [facility] via [email or web address]. If you do not have access to our QA portal, call our QA team at [phone] CONFIDENTIALITY STATEMENT This report is intended only for the use of the referring physician, and only in accordance with law, If you received this in error, call [phone] Page 3 of 3 Dictated and Authenticated by: Jessi Coreas MD Related Data Home Medications ?Medication ?Instructions ?Recorded ?Confirmed apixaban 5 mg tablet (Eliquis) 2.5 mg PO BID 11/25/22 05/04/25 calcitriol 0.25 mcg capsule 0.25 mcg PO DIRECTED 11/25/22 05/04/25 calcium carbonate 1,000 mg PO TID 11/25/22 05/04/25 carvedilol 25 mg tablet 25 mg PO BID 11/25/22 05/04/25 cholecalciferol (vitamin D3) 25 25 mcg PO DIRECTED 11/25/22 05/04/25 mcg (1,000 unit) tablet (Vitamin D3) cyanocobalamin (vitamin B-12) 1,000 mcg PO DAILY 11/25/22 05/04/25 1,000 mcg tablet,extended release icosapent ethyl 1 gram capsule 2 g PO BID 11/25/22 05/04/25 (Vascepa) lidocaine HCl 4 % topical patch 1 patch topical DAILY 11/25/22 05/04/25 multivitamin 1 tab PO DAILY 11/25/22 05/04/25 pravastatin 10 mg tablet 10 mg PO DAILY 11/25/22 05/04/25 sertraline 100 mg tablet 100 mg PO DAILY 11/25/22 05/04/25 sodium bicarbonate 650 mg tablet 1,300 mg PO TID 11/25/22 05/04/25 triamcinolone acetonide 0.1 % 1 applic topical DIRECTED 11/25/22 05/04/25 topical cream atorvastatin 40 mg tablet (Lipitor) 40 mg PO DAILY 05/04/25 05/04/25 magnesium 200 mg tablet 200 mg PO DAILY 05/04/25 05/04/25 metoprolol tartrate 50 mg tablet 50 mg PO DAILY 05/04/25 05/04/25 (Lopressor) nitroglycerin 0.4 mg sublingual 0.4 mg sublingual Q5-15M PRN 05/04/25 05/04/25 tablet Allergies Allergy/AdvReac Type Severity Reaction Status Date / Time lisinopril Allergy Unknown unknown Unverified 05/04/25 19:31 minoxidil Allergy Unknown unknown Unverified 05/04/25 19:31 tacrolimus Allergy Unknown liver Unverified 05/04/25 19:31 failure General Stated Complaint: Abd Prob LESTER: 3 Course Vital Signs Vital signs: Vital Signs Temperature 36.7 C 05/04/25 19:24 Pulse 75 05/04/25 19:24 Respiratory Rate 18 05/04/25 19:24 Blood Pressure 114/58 L 05/04/25 19:24 Pulse Oximetry 91 L 05/04/25 19:24 Temperature 36.7 C 05/04/25 19:41 Temperature Source Oral 05/04/25 19:41 Pulse 75 05/04/25 19:41 Respiratory Rate 18 05/04/25 19:41 Blood Pressure 114/58 L 05/04/25 19:41 Blood Pressure Position Sitting 05/04/25 19:41 Pulse Oximetry 91 L 05/04/25 19:41 Oxygen Delivery Method Room Air 05/04/25 19:41 Oxygen Flow Rate 0 05/04/25 19:41 Lab/Test Results Lab/Test Results: 05/04/25 20:23 Blood Blood Culture - Pending 05/04/25 20:05 Blood Blood Culture - Pending Laboratory Tests Range/Units 05/04/25 05/04/25 20:05 20:23 WBC (4.4-10.8) 10^3/uL 7.45 RBC (4.36-5.78) 10^6/uL 3.86 L Hgb (13.5-17.5) g/dL 11.3 L Hct (40.0-50.0) % 36.4 L MCV (80-95) fL 94 MCH (27.0-33.0) pg 29.3 MCHC (32.0-36.0) % 31.0 L RDW (11.8-14.1) % 17.2 H Plt Count (130-400) 10^3/uL 134 MPV (8.0-11.0) fL 11.2 H Immature Gran % % 0.3 Neutrophils % % 86.0 Lymphocytes % % 7.4 Monocytes % % 5.6 Eosinophils % % 0.3 Basophils % % 0.4 Nucleated RBC % (0.0-0.3) % 0.0 Absolute Neutrophils (1.2-6.7) 10^3/uL 6.41 Absolute Lymphocytes (1.2-3.4) 10^3/uL 0.55 L Absolute Monocytes (0.1-0.8) 10^3/uL 0.42 Absolute Eosinophils (0.0-0.7) 10^3/uL 0.02 Absolute Basophils (0.0-0.2) 10^3/uL 0.03 PT Cancelled 14.4 H INR Cancelled 1.5 H APTT Cancelled 32.1 H VBG Lactate (<or=2.0) mmol/L 1.6 Sodium (136-145) mmol/L 139 Potassium (3.5-5.1) mmol/L 4.7 Chloride (98-107) mmol/L 98 Carbon Dioxide (20.0-31.0) mmol/L 30.1 Anion Gap (3-11) mmol/L 11.2 H BUN (9-23) mg/dL 34 H Creatinine (0.73-1.18) mg/dL 3.21 H Est GFR (CKD-EPI 2020) (mL/min/1.73m2) 18.83 Glucose (74-106) mg/dL 107 H Calcium (8.3-10.6) mg/dL 9.3 Total Bilirubin (0.2-1.2) mg/dL 1.4 H AST (<34) U/L 31 ALT (10-49) U/L 15 Alkaline Phosphatase (46-116) U/L 140 H Troponin I (<54) ng/L 62 H* Total Protein (5.7-8.2) g/dL 7.7 Albumin (3.2-5.0) g/dL 4.1 Lipase (<53) U/L 19 ABO/Rh B Positive Antibody Screen NEGATIVE PFSH All Active Problems (Updated 05/05/25 @ 00:48 by Arsen Shearer MD) Chronic wound (Acute) Diarrhea (Acute) Abdominal pain (Acute) Medical History (Updated 05/05/25 @ 00:48 by Arsen Shearer MD) Aortic stenosis, mild Mitral valve regurgitation mild-moderate Mild aortic regurgitation Dependence on renal dialysis M-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 Smoker Renal artery stenosis Pericardial effusion PAF (paroxysmal atrial fibrillation) Overweight Nicotine dependence Myocardial infarction 05/14/22 Hypoalbuminemia Hypertriglyceridemia Hypertensive disorder End stage renal disease Diastolic heart failure Diabetes mellitus Depressive disorder Coronary arteriosclerosis Chronic kidney disease, stage 5 Anemia Acute respiratory failure Acute pulmonary edema Surgical History (Updated 12/10/22 @ 08:07 by Jered Merino MD) History of hip surgery History of ankle surgery Hx of cardiac catheterization 05/21/22 History of esophagogastroduodenoscopy (EGD) History of thoracentesis 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 Social History Smoking/Tobacco Use Status: Former Tobacco Use Quit Date: 05/16/12 Smoking risk assessment performed?: Yes Alcohol Intake: former Drug use: Never Substance use type: does not use Housing: house Do you feel safe at home: Yes Do you feel safe in your relationship?: Yes
[2025-05-04 21:05] LABS: COVID-19 PCR Negative (Negative); RSV PCR Negative (Negative)
[2025-05-04 21:47] LABS: EPI 027-NAP1-B1 PRESUMPTIVE NEGATIVE
[2025-05-04 22:04] LABS: Troponin I 63 ng/L (<54)
[2025-05-04] MEDS: Omnipaque 350 MG/ML 100 ML BTL IJ (22:13)
[2025-05-04] MEDS: Normal Saline - Diluent 50 ML VIAL IJ (22:13)
[2025-05-04] MEDS: Normal Saline Flush 10 ML SYR IVP (22:18)
--- NOTE | 2025-05-04 22:19 | DI.CT_ITS ---
Exam(s) CT CHEST/ABD/PEL W EXAM: CT CHEST/ABD/PEL W CLINICAL HISTORY: epigastric pain, w/ questionable infiltrate on CXR TECHNIQUE: Imaging Protocol: Axial computed tomography images with coronal and sagittal reformatted images were created and reviewed. Lung Computer Aided Detection (CAD) was utilized. CONTRAST MATERIAL: Intravenous: Omnipaque 350 contrast volume:75 mL Oral: No COMPARISON: CR,XR XR PORTABLE CHEST AP from 05/04/2025 FINDINGS: The examination is limited due to patient motion artifact. CHEST: Tracheobronchial tree: Patent where visualized. No evidence of bronchiectasis. Pulmonary parenchyma: No consolidation or dominant measurable mass. There is a 3 mm nodule in the left lower lobe. (Series 10, image 77). There is atelectasis seen in the right lower lobe. Visualized thyroid gland: Unremarkable. Mediastinum and Gwendolyn: No dominant adenopathy or fluid collection. The esophagus is unremarkable. Pleura: There is a moderate right pleural effusion. There is no left pleural effusion. There is no pneumothorax. Heart: The heart is enlarged. Coronary artery calcifications are present. No pericardial effusion. Pulmonary arteries: The pulmonary artery opacification is suboptimal for evaluation of pulmonary emboli. No large pulmonary embolism is seen in the main, right or left pulmonary arteries. Aorta: Thoracic aorta non-dilated. Atherosclerotic calcification is present. Lymph nodes: Within normal limits. Soft tissues: Unremarkable. Bones:Within normal limits for the patient's age. ABDOMEN: Liver: There is decreased density of the liver. The liver is enlarged. No measurable mass. Portal, Superior Mesenteric, and Splenic Veins: Unremarkable. Gallbladder and Biliary Tract: Status post cholecystectomy. Pancreas: Normal density, no abnormal calcifications or inflammatory process. Spleen: The spleen is enlarged measuring 13 cm. Adrenals: No masses seen. Kidneys: There is marked bilateral renal atrophy. There is poor enhancement of the left kidney. No radiodense stones or obstructive uropathy. No masses seen. Abdominal Aorta: Abdominal portion non-dilated. Atherosclerotic calcification is present of the abdominal aorta. Marked atherosclerotic calcification is seen in the renal arteries, right greater than left. Bowel: No obstruction or bowel wall thickening. There is no evidence of appendicitis. Peritoneal Cavity: There is a large amount of abdominal pelvic ascites. No free air. Lymph Nodes: Within normal limits. Bones: Within normal limits for the patient's age. Sideplate and screws are seen in the right hemipelvis. Soft Tissues: There is a small fat and fluid containing umbilical hernia. PELVIS: Bladder: Symmetric distention, no gross wall thickening. Reproductive Organs: Unremarkable as visualized. Lymph Nodes: Within normal limits. Bones: Within normal limits. IMPRESSION: 1. Cardiomegaly. 2. There is a moderate size right pleural effusion and subjacent atelectasis. 3. There is a 3 mm left lower lobe pulmonary nodule. Solid nodules smaller than 6 mm do not require routine follow-up in all patients with high clinical risk; however, some nodules smaller than 6 mm with suspicious morphology, upper lobe location, or both may warrant follow-up at 12 months (grade 2A; weak recommendation, high-quality evidence). (Jarrett et al., 2017) Single solid noncalcified nodules. ???Solid nodules smaller than 6 mm (those 5 mm or smaller) do not require routine follow-up in patients at low risk (grade 1C; strong recommendation, low- or [id number] evidence). (Jarrett et al., 2017) 4. Hepatosplenomegaly. 5. Large amount of abdominal and pelvic ascites. 6. Bilateral marked renal atrophy. 7. The preliminary [facility] report was reviewed. RADIATION DOSE DELIVERED: 413.39mGy.cm Total DLP DATA REPOSITORY: All CT scans at this facility are submitted to the National Radiology Data Registry (NRDR) Dose Index Registry (DIR) with the [employer] ([employer]). RADIATION OPTIMIZATION: All CT scans at this facility use at least one of these dose optimization techniques: automated exposure control; mA and/or kV adjustment per patient size (includes targeted exams where dose is matched to clinical indication); or iterative reconstruction.
--- NOTE | 2025-05-04 22:37 | DI.VRAD_ITS ---
PROCEDURE INFORMATION: Exam: CT Chest With Contrast; Diagnostic Exam date and time: 05/04/2025 10:07 PM Age: 79 years old Clinical indication: Other: Epigastric pain; Other: Questionable infiltrate on cxr TECHNIQUE: Imaging protocol: Diagnostic computed tomography of the chest with contrast. 3D rendering (Not supervised by radiologist): MIP and/or 3D reconstructed images were created by the technologist. Contrast material: OMNIPAQUE 350; Contrast volume: 75 ml; Contrast route: INTRAVENOUS (IV); COMPARISON: CR XR PORTABLE CHEST AP 05/04/2025 8:06 PM FINDINGS: Lungs: The left lung is clear. Compressive atelectasis is present at the right lung base. Trace atelectasis is present in the dependent aspect of the right upper lobe. No airspace consolidation. No patchy airspace opacities correlate with the questionable findings on the comparison plain film from earlier today. Pleural spaces: There is a moderate-sized low-density right pleural effusion. Heart: The heart is markedly enlarged. Coronary arteries: There are scattered atheromatous coronary artery calcifications. Lymph nodes: No enlarged lymph nodes. Vasculature: Atheromatous calcifications are present within the visualized thoracic aorta. Bones/joints: Unremarkable. No acute fracture. Soft tissues: Unremarkable. IMPRESSION: 1. Moderate right pleural effusion and compressive atelectasis. 2. No acute pulmonary consolidation or patchy airspace opacities. PROCEDURE INFORMATION: Exam: CT Abdomen And Pelvis With Contrast Exam date and time: 05/04/2025 10:07 PM Age: 79 years old Clinical indication: Other: Epigastric pain; Other: Questionable infiltrate on cxr TECHNIQUE: Imaging protocol: Computed tomography of the abdomen and pelvis with contrast. 3D rendering (Not supervised by radiologist): MIP and/or 3D reconstructed images were created by the technologist. Contrast material: OMNIPAQUE 350; Contrast volume: 75 ml; Contrast route: INTRAVENOUS (IV); COMPARISON: CR XR PORTABLE CHEST AP 05/04/2025 8:06 PM FINDINGS: Liver: The liver has a normal appearance. Gallbladder and biliary ducts: The gallbladder is surgically absent. Pancreas: The pancreas is atrophic. Spleen: The spleen measures 13.1 cm in length. Adrenal glands: The adrenal glands have a normal appearance. Kidneys and ureters: The kidneys are severely atrophic. Stomach and bowel: The bowel demonstrates overall normal caliber and wall thickness. Appendix: The appendix is thin walled. Intraperitoneal space: There is a [id number] amount of abdominal ascites. Vasculature: There are dense atheromatous calcifications throughout the aorta and iliac arteries. Lymph nodes: No enlarged lymph nodes. Urinary bladder: The bladder is decompressed. Reproductive: Unremarkable as visualized. Bones/joints: Bones have a normal appearance. No acute fracture or suspicious bone lesion. Soft tissues: There is a small fat containing left inguinal hernia. IMPRESSION: 1. Large volume ascites. This finding in conjunction with right pleural effusion and cardiomegaly suggest congestive failure. 2. No other acute intra-abdominal findings. 3. Normal appendix. Dictated and Authenticated by: Jessi Coreas MD. Orderin Janki Leger MD
[2025-05-04] MEDS: Loperamide 2 MG CAP 4 MG PO (23:31)
[2025-05-05] VITALS (137 sets, daily range): BP systolic 116–168; BP diastolic 28–106; PULSE 58–91; RESP 10–27; O2SAT 85–100
--- NOTE | 2025-05-05 00:49 | W.ED.PROC ---
Procedures Paracentesis Time Out Performed: Yes Indication: possible spontaneous bacterial peritonitis Procedure: diagnostic paracentesis Location: RLQ Local Anesthetic: Lidocaine 1% and with Epi Amount of anesthesia used (mL): 3 Bedside Ultrasound Used: yes, real-time guidance Preparation: sterile prep and drape Amount of Fluid Obtained: 50 Fluid: cloudy Size of Needle Used: 20 Post Procedure Exam: awake, alert, normal BP, normal HR and normal SpO2 Patient Tolerated Procedure: well Complications: pain
[2025-05-05] MEDS: PIPERACILLIN/TAZO 4.5 GM in Normal Saline 100 ML IVPB (02:01)
[2025-05-05 02:14] LABS: Polynuclear Cells 10 %
--- NOTE | 2025-05-05 02:48 | W.EDPROG ---
Date of service: 05/05/25 Time of Service: 02:49 Medical Decision Making 3:30 AM The case was signed out to me by my colleague Dr. Shearer. Please refer to his HPI, physical exam, assessment and plan. 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 Workup was negative for C. difficile, CT scan of the chest abdomen and pelvis revealed no focal infectious source. The patient did have abdominal pain and there was concern for his significant ascites to represent spontaneous bacterial peritonitis. Plan was at time of signout because of the patient's fevers at home, his symptoms, and his immunocompromise status that he would need to be admitted for observation if no infectious source was found until blood cultures returned. At the time of signout the workup had been performed and we were pending the results of his peritoneal fluid. Peritoneal fluid has returned at 519 white blood cells, concerning for spontaneous bacterial peritonitis. 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 We contacted [facility] and spoke with , who accepts the patient for transfer. 4:30 AM Differential for peritoneal fluid has returned, and shows that the results actually reflect a mono nuclear predominance, with pollen nuclear WBCs only accounting for 10% leading to an essential absolute neutrophil count of 51-michael. This does not meet criterion for spontaneous bacterial peritonitis. Because of this I contacted the [facility] team, and continued to express my concern about the patient's risk factors with his immunocompromise status, and the potential fever of unknown origin that is noted at home. Dr. Stahl at [facility] feels that there is no emergent need at this time to thus transfer to [facility] until he needs dialysis on Tuesday, and request that the patient be admitted here until blood culture results return or he needs dialysis on Tuesday. I contacted the hospitalist Dr. Celis, and because of the patient's dialysis needs in 24 hours, he has declined admission and request transfer. I reach back out to [facility], and they recommended discussing the case with the medical AOC. I subsequently spoke with Dr. Carter and after thorough review of the case, the patient's needs, and risk factors she recommends transfer to [facility] and gives permission for said transfer at this stage. Unfortunately, during this time the transfer center received a call from [facility] that they were down staffing for [facility] and no longer have the bed available that was previously available and committed to. [facility]/Dr. Carter then recommended placement of the patient at the top of the list for urgent transfer. The patient will remain in the ER until that is available. Discharge Plan Disposition Patient Disposition: Transfer-Acute Inpatient Care Specific Acute Inpt Facility: [facility] Condition: Stable Discharge Details Clinical Impression: Abdominal pain, Diarrhea, Chronic wound, Fever and chills Primary Care Provider: [facility] ED Provider: Sean Simmons Home Meds and New Rx's Prescriptions: No Action multivitamin Tablet 1 tab PO DAILY cyanocobalamin (vitamin B-12) 1,000 mcg Tablet Extended Release 1,000 mcg PO DAILY carvedilol 25 mg Tablet 25 mg PO BID sertraline 100 mg Tablet 100 mg PO DAILY triamcinolone acetonide 0.1 % Cream 1 applic TOPICAL DIRECTED pravastatin 10 mg Tablet 10 mg PO DAILY calcium carbonate [Calcium 500] 500 mg calcium (1,250 mg) Tablet 1,000 mg PO TID sodium bicarbonate 650 mg Tablet 1,300 mg PO TID calcitriol 0.25 mcg Capsule 0.25 mcg PO DIRECTED cholecalciferol (vitamin D3) [Vitamin D3] 25 mcg (1,000 unit) Tablet 25 mcg PO DIRECTED icosapent ethyl [Vascepa] 1 gram Capsule 2 g PO BID Eliquis 5 mg Tablet 2.5 mg PO BID lidocaine HCl 4 % Adhesive Patch,Medicated 1 patch TOPICAL DAILY nitroglycerin 0.4 mg tablet, sublingual 0.4 mg sublingual Q5-15M PRN Rx Instructions: do not exceed 3 doses per episode magnesium 200 mg tablet 200 mg PO DAILY atorvastatin [Lipitor] 40 mg tablet 40 mg PO DAILY metoprolol tartrate [Lopressor] 50 mg tablet 50 mg PO DAILY
[2025-05-05 03:43] LABS: ESR 12 mm/hr (0-20)
[2025-05-05 03:55] LABS: C-Reactive Protein 7.23 mg/dL (<=0.50)
[2025-05-05 04:23] LABS: Procalcitonin 0.84 ng/mL
--- NOTE | 2025-05-05 07:56 | W.EDPROG ---
Date of service: 05/22/25 Time of Service: 07:56 Medical Decision Making I received signout on this 79-year-old male pending transfer to [facility]. He has history of hepatic transplant. He is also dialysis dependent. Transfer paperwork has been signed. 3:38 PM No active issues on my shift. Patient still pending transfer. I signed patient out to Dr. Shearer. Discharge Plan Disposition Patient Disposition: Transfer-Acute Inpatient Care Specific Acute Inpt Facility: [facility] Condition: Stable Discharge Details Clinical Impression: Abdominal pain, Diarrhea, Chronic wound, Fever and chills Primary Care Provider: [facility] ED Provider: Dorian Pagan [place] Meds and New Rx's Prescriptions: No Action multivitamin Tablet 1 tab PO DAILY cyanocobalamin (vitamin B-12) 1,000 mcg Tablet Extended Release 1,000 mcg PO DAILY carvedilol 25 mg Tablet 25 mg PO BID sertraline 100 mg Tablet 100 mg PO DAILY triamcinolone acetonide 0.1 % Cream 1 applic TOPICAL DIRECTED pravastatin 10 mg Tablet 10 mg PO DAILY calcium carbonate [Calcium 500] 500 mg calcium (1,250 mg) Tablet 1,000 mg PO TID sodium bicarbonate 650 mg Tablet 1,300 mg PO TID calcitriol 0.25 mcg Capsule 0.25 mcg PO DIRECTED cholecalciferol (vitamin D3) [Vitamin D3] 25 mcg (1,000 unit) Tablet 25 mcg PO DIRECTED icosapent ethyl [Vascepa] 1 gram Capsule 2 g PO BID Eliquis 5 mg Tablet 2.5 mg PO BID lidocaine HCl 4 % Adhesive Patch,Medicated 1 patch TOPICAL DAILY nitroglycerin 0.4 mg tablet, sublingual 0.4 mg sublingual Q5-15M PRN Rx Instructions: do not exceed 3 doses per episode magnesium 200 mg tablet 200 mg PO DAILY atorvastatin [Lipitor] 40 mg tablet 40 mg PO DAILY metoprolol tartrate [Lopressor] 50 mg tablet 50 mg PO DAILY
[2025-05-06] VITALS (77 sets, daily range): BP systolic 75–159; BP diastolic 17–44; PULSE 48–133; RESP 11–26; O2SAT 25–100
[2025-05-06] MEDS: Apixaban 5 MG TAB 2.5 MG PO (02:48)
[2025-05-06] MEDS: Sodium Bicarbonate 650 MG TAB 1300 MG PO (02:49)
[2025-05-06] MEDS: Carvedilol 25 MG TAB PO (02:50)
[2025-05-06] MEDS: Normal Saline 500 ML IV (04:58)
[2025-05-06] MEDS: CLINDAMYCIN 600 MG/50 ML BAG 100 MG IVPB (05:02)
[2025-05-06] MEDS: Sodium Bicarbonate 50 MEQ/50 ML SYR IVP (05:45)
--- NOTE | 2025-05-06 05:45 | DI.RAD_ITS ---
Exam(s) XR PORTABLE CHEST AP POST LINE EXAM: XR PORTABLE CHEST AP POST LINE CLINICAL HISTORY: intubation TECHNIQUE: 2D digital imaging was performed of the chest. One image was obtained. An AP view was obtained. COMPARISON: CR,XR XR PORTABLE CHEST AP from 05/04/2025 FINDINGS: There has been interval placement of an endotracheal tube. The tip is 5 cm above the claudette. MEDIASTINUM: Normal. HEART: Normal. PULMONARY VASCULATURE: Normal. LUNGS: The lung apices are not included on this examination. There are no focal consolidating infiltrates. PLEURAL SPACE: No pleural effusion or pneumothorax. BONE:Within normal limits for the patient's age. OTHER FINDINGS:There is monitoring equipment overlying the left lung base limiting evaluation. IMPRESSION: 1. The recently placed endotracheal tube tip is 5 cm above the claudette. 2. No focal consolidating infiltrates. 3. The preliminary [facility] report was reviewed. DATA REPOSITORY: RADIATION DOSE DELIVERED:
[2025-05-06] MEDS: EPINEPHrine 1 MG/10 ML SYR IVP (05:46)
[2025-05-06] MEDS: Rocuronium 50 MG/5 ML SYR (05:54)
--- NOTE | 2025-05-06 05:54 | TELEP.MEDR_ITS ---
Date of service: 05/06/25 Time of Service: 05:55 Telepharmacy Home Med Rec Allergies Allergies: lisinopril Allergy (Unknown, Unverified 05/04/25 19:31) unknown minoxidil Allergy (Unknown, Unverified 05/04/25 19:31) unknown Interview Person Interviewed: unable to interview at this time. Home med list updated from [facility] Dialysis Summary form 05/03/2025 Additional Notes Additional Notes: Patient was admitted to SNF at [facility] 03/19/25-03/27/25 post discharge from [facility], and prior to that was At [facility] at [place], [place]- [facility]. Some noted discrepancies within the history: * Prior to 03/19/25- patient was on aspirin 81 mg chew tab daily * Jardiance 10 mg daily was stopped at discharge from [facility] on 03/27/25 * patient was to be on vancomycin po 125 mg qid for 10 weeks until 05/05/25 23:59 (chronic C.diff) * On 01/10/25- tacrolimus was 0.5 mg once daily at [facility]; discharged on tacrolimus 0.5 mg BID * gabapentin 100 mg daily prior to 04/17/25; then changed to 100 mg tid 04/17/25 Recommended Changes Recommended Changes(reason for recommendation): Please verify patient has been taking Eliquis 5 mg bid which was prescribed 03/19/25 for 30 days ( 04/18/2025). Recommend contacting [facility] in [place], [place] to confirm fill history specifically for Eliquis and tacrolimus. Recommend obtaining tacrolimus level if have not done so. Attestation: The home medication list is now updated to the best of my knowledge and is ready to be reconciled by the provider. Please contact the TelePharmacy Medication Reconciliation Pharmacist at for any questions. Meds Home Medications and Allergies Home Medications ?Medication ?Instructions ?Recorded ?Confirmed ?Type apixaban 5 mg tablet (Eliquis) 5 mg PO BID 11/25/22 History calcitriol 0.25 mcg capsule 0.25 mcg PO DIRECTED 05/06/25 History calcium carbonate 1,000 mg PO QHS 11/25/22 History cholecalciferol (vitamin D3) 25 50 mcg PO QPM 11/25/22 05/06/25 History mcg (1,000 unit) tablet (Vitamin D3) sertraline 100 mg tablet 100 mg PO QPM 11/25/2205/06 History atorvastatin 40 mg tablet (Lipitor) 40 mg PO DAILY 05/06/25 History acetaminophen 325 mg tablet 975 mg PO TID PRN pain 05/06/25 History albuterol sulfate 90 mcg/actuation 2 inh inhalation Q4 H PRN shortness 05/06/25 05/06/25 History aerosol inhaler (Ventolin HFA) of breath or wheezing aspirin 81 mg tablet,delayed 81 mg PO QPM 05/06/25 History release calcium acetate(phosphat bind) 667 1,334 mg PO BID AC 05/06/25 05/06/25 History mg tablet cyanocobalamin (vitamin B-12) 100 100 mcg PO DAILY 05/06/25 History mcg tablet cyclobenzaprine 5 mg tablet 5 mg PO TID PRN muscle spa sm 05/06/25 05/06/25 History dimethicone-zinc oxide 20 %-25 % 1 spray topical Q4H P RN PRN wound 05/06/25 05/06/25 History topical spray care gabapentin 100 mg capsule 100 mg PO TID 05/06/2505/06 History magnesium oxide 400 mg (241.3 mg 400 mg PO DAILY 05/0605/06/25 History magnesium) tablet metoprolol succinate 25 mg 25 mg PO DAILY 05/06/25 History tablet,extended release 24 hr nitroglycerin 0.3 mg sublingual 0.3 mg sublingual Q5M PRN chest 05/06/25 05/06/25 History tablet (Nitrostat) pain ondansetron 4 mg disintegrating 4 mg PO Q6H PRN nausea and vomiting 05/06/25 05/06/25 History tablet pantoprazole 40 mg tablet,delayed 40 mg PO DAILY 05/0605/06/25 History release simethicone 80 mg chewable tablet 80 mg PO QID PRN abd ominal 05/06/25 05/06/25 History (Gas Relief 80 (simethicone)) distention; gas sodium chloride-hypochlorous acid 1 irrig irrigation D AILY 05/06/25 05/06/25 History 0.033 % irrigation solution (Vashe) tacrolimus 0.5 mg capsule, 0.5 mg PO BID 05/06/2504/16 History immediate-release (Prograf) thiamine HCl (vitamin B1) 100 mg 100 mg PO DAILY 05/0605/06/25 History tablet vitamin B complex-vitamin C-folic 1 tab PO QHS 5 05/06/25 History acid 0.8 mg tablet (Nephro-Carleen) Allergies Allergy/AdvReac Type Severity Reaction Status Date / Time lisinopril Allergy Unknown unknown Unverified 05/04/25 19:31 minoxidil Allergy Unknown unknown Unverified 05/04/25 19:31
--- NOTE | 2025-05-06 05:54 | TELEP.MEDREC ---
Date of service: 05/06/25 Time of Service: 05:55 Telepharmacy Home Med Rec Allergies Allergies: lisinopril Allergy (Unknown, Unverified 05/04/25 19:31) unknown minoxidil Allergy (Unknown, Unverified 05/04/25 19:31) unknown Interview Person Interviewed: unable to interview at this time. Home med list updated from [facility] Dialysis Summary form 05/03/2025 Additional Notes Additional Notes: Patient was admitted to SNF at [facility] 03/19/25-03/27/25 post discharge from [facility], and prior to that was At [facility] at [place], [place]- [facility]. Some noted discrepancies within the history: Prior to 03/19/25- patient was on aspirin 81 mg chew tab daily Jardiance 10 mg daily was stopped at discharge from [facility] on 03/27/25 patient was to be on vancomycin po 125 mg qid for 10 weeks until 05/05/25 23:59 (chronic C.diff) On 01/10/25- tacrolimus was 0.5 mg once daily at [facility]; discharged 03/19/25 on tacrolimus 0.5 mg BID gabapentin 100 mg daily prior to 04/17/25; then changed to 100 mg tid 04/17/25 Recommended Changes Recommended Changes(reason for recommendation): Please verify patient has been taking Eliquis 5 mg bid which was prescribed 03/19/25 for 30 days ( 04/18/2025). Recommend contacting [facility] in [place], [place] to confirm fill history specifically for Eliquis and tacrolimus. Recommend obtaining tacrolimus level if have not done so. Attestation: The home medication list is now updated to the best of my knowledge and is ready to be reconciled by the provider. Please contact the TelePharmacy Medication Reconciliation Pharmacist at for any questions. Meds Home Medications and Allergies Home Medications ?Medication ?Instructions ?Recorded ?Confirmed ?Type apixaban 5 mg tablet (Eliquis) 5 mg PO BID 11/25/22 12/10/22 History calcitriol 0.25 mcg capsule 0.25 mcg PO DIRECTED 11/25/22 05/06/25 History calcium carbonate 1,000 mg PO QHS 11/25/22 05/06/25 History cholecalciferol (vitamin D3) 25 50 mcg PO QPM 11/25/22 05/06/25 History mcg (1,000 unit) tablet (Vitamin D3) sertraline 100 mg tablet 100 mg PO QPM 11/25/22 05/06/25 History atorvastatin 40 mg tablet (Lipitor) 40 mg PO DAILY 05/04/25 05/06/25 History acetaminophen 325 mg tablet 975 mg PO TID PRN pain 05/06/25 05/06/25 History albuterol sulfate 90 mcg/actuation 2 inh inhalation Q4H PRN shortness 05/06/25 05/06/25 History aerosol inhaler (Ventolin HFA) of breath or wheezing aspirin 81 mg tablet,delayed 81 mg PO QPM 05/06/25 05/06/25 History release calcium acetate(phosphat bind) 667 1,334 mg PO BID AC 05/06/25 05/06/25 History mg tablet cyanocobalamin (vitamin B-12) 100 100 mcg PO DAILY 05/06/25 05/06/25 History mcg tablet cyclobenzaprine 5 mg tablet 5 mg PO TID PRN muscle spasm 05/06/25 05/06/25 History dimethicone-zinc oxide 20 %-25 % 1 spray topical Q4H PRN PRN wound 05/06/25 05/06/25 History topical spray care gabapentin 100 mg capsule 100 mg PO TID 05/06/25 05/06/25 History magnesium oxide 400 mg (241.3 mg 400 mg PO DAILY 05/06/25 05/06/25 History magnesium) tablet metoprolol succinate 25 mg 25 mg PO DAILY 05/06/25 05/06/25 History tablet,extended release 24 hr nitroglycerin 0.3 mg sublingual 0.3 mg sublingual Q5M PRN chest 05/06/25 05/06/25 History tablet (Nitrostat) pain ondansetron 4 mg disintegrating 4 mg PO Q6H PRN nausea and vomiting 05/06/25 05/06/25 History tablet pantoprazole 40 mg tablet,delayed 40 mg PO DAILY 05/06/25 05/06/25 History release simethicone 80 mg chewable tablet 80 mg PO QID PRN abdominal 05/06/25 05/06/25 History (Gas Relief 80 (simethicone)) distention; gas sodium chloride-hypochlorous acid 1 irrig irrigation DAILY 05/06/25 05/06/25 History 0.033 % irrigation solution (Vashe) tacrolimus 0.5 mg capsule, 0.5 mg PO BID 05/06/25 05/06/25 History immediate-release (Prograf) thiamine HCl (vitamin B1) 100 mg 100 mg PO DAILY 05/06/25 05/06/25 History tablet vitamin B complex-vitamin C-folic 1 tab PO QHS 05/06/25 05/06/25 History acid 0.8 mg tablet (Nephro-Carleen) Allergies Allergy/AdvReac Type Severity Reaction Status Date / Time lisinopril Allergy Unknown unknown Unverified 05/04/25 19:31 minoxidil Allergy Unknown unknown Unverified 05/04/25 19:31
[2025-05-06] MEDS: Etomidate 20 MG/10 ML VIAL (05:55)
[2025-05-06 06:14] LABS: Abs Immature Grans 0.15 10^3/uL (0.0-0.06); HCT 34.9 % (40.0-50.0); HGB 10.9 g/dL (13.5-17.5); Immature Grans % 1.9 %; MCH 29.7 pg (27.0-33.0); MCHC 31.2 % (32.0-36.0); MCV 95 fL (80-95); MPV 11.3 fL (8.0-11.0); Platelet Count 119 10^3/uL (130-400); RBC 3.67 10^6/uL (4.36-5.78); RDW 17.2 % (11.8-14.1); RDW-SD 59.4 fL; WBC 7.86 10^3/uL (4.4-10.8)
[2025-05-06] MEDS: Norepinephrine in D5W 8 MG/250 ML BAG 9.375 MG IV (06:20)
[2025-05-06] MEDS: PROPOFOL 500 MG/50 ML BTL IV_INF (06:25)
[2025-05-06 06:39] LABS: Magnesium 2.0 mg/dL (1.6-2.6)
[2025-05-06] MEDS: Hydrocortisone SOD SUC. 100 MG VIAL IVP (06:45)
--- NOTE | 2025-05-06 06:45 | DI.RAD_ITS ---
Exam(s) XR PORTABLE CHEST AP POST LINE EXAM: XR PORTABLE CHEST AP POST LINE CLINICAL HISTORY: Post central line placement TECHNIQUE: 2D digital imaging was performed of the chest. One image was obtained. An AP view was obtained. COMPARISON: CR,XR XR PORTABLE CHEST AP POST LINE from 05/06/2025 FINDINGS: The tip of the endotracheal tube is again seen well above the claudette. Its tip is located approximately 4.7 cm above the claudette. There has been interval placement of a right IJ catheter. The tip is in good position in the superior vena cava near the right atrial junction. There is monitoring equipment overlying the left lung base limiting evaluation. MEDIASTINUM: Normal. HEART: Normal. PULMONARY VASCULATURE: Normal. LUNGS: There are no focal consolidating infiltrates. PLEURAL SPACE: No pleural effusion or pneumothorax. BONE:Within normal limits for the patient's age. OTHER FINDINGS:Normal. IMPRESSION: 1. There has been interval placement of a right IJ catheter. This tip is in good position in the superior vena cava. There is no pneumothorax. 2. No acute pulmonary process. 3. The preliminary [facility] report was reviewed. DATA REPOSITORY: RADIATION DOSE DELIVERED:
[2025-05-06 06:53] LABS: ALT 13 U/L (10-49); AST 27 U/L (<34); Albumin 3.5 g/dL (3.2-5.0); Alkaline Phosphatase 126 U/L (46-116); Anion Gap 17.3 mmol/L (3-11); BUN 51 mg/dL (9-23); Bilirubin, Total 0.9 mg/dL (0.2-1.2); CO2 24.8 mmol/L (20.0-31.0); Calcium 9.0 mg/dL (8.3-10.6); Chloride 98 mmol/L (98-107); Glucose 141 mg/dL (74-106); Potassium 5.1 mmol/L (3.5-5.1); Sodium 140 mmol/L (136-145); Total Protein 6.7 g/dL (5.7-8.2); Troponin I 72 ng/L (<54)
--- NOTE | 2025-05-06 06:56 | RESPIRATORY ---
RT called for CODE BLUE. Assisted during intubation and bag masked with max flow of O2 during code. Pt. transitioned to mechanical ventilator post CODE BLUE.
--- NOTE | 2025-05-06 07:04 | W.EDPROG ---
Date of service: 05/06/25 Time of Service: 07:04 Medical Decision Making 2:30 AM Patient was received in signout. Please refer to previous HPI, and subsequent progress notes. Patient was initially accepted at [facility], and then [facility] bed was subsequently lost secondary to down staffing. Hospitalist team requested not to admit the patient secondary to dialysis needs. [facility] then accepted patient however we were awaiting bed placement. Initial plan was for him to be transferred yesterday on 05/05/2025. This did not happen throughout the day. Patient remains in the ED. I reviewed the patient's status after signout, discussed with nursing staff and as the patient has been here for 24 hours now, and we still do not have a bed, we will restart the patient's home medications. Med rec was confirmed with [facility] telemetry pharmacy, and meds were restarted. However his tacrolimus was not restarted because he did not know the dose. [facility] had contact [facility] to get this, and we are still pending that dose. At this time patient remained stable, blood pressure remains in the 130s, heart rate stable. Patient remains afebrile. He feels well. He is requesting food and drink which I do feel is reasonable. Will continue await transfer. 4:50 AM On nursing reassessment, blood pressure was noted to be in the 80s which is atypical for the patient. He is stating that he is thirsty, we will allow p.o. Will give a small to 250 cc to 500 cc bolus cautiously secondary to his need for dialysis. Will get repeat vital signs including temperature. Additionally the patient's blood cultures have returned and are positive for gram-positive cocci. Will monitor closely. We will add clindamycin for coverage of this. 7 AM Minutes after initial vital sign reassessment, patient suddenly had notable decline, patient went from smiling and waving during RN and actions while he was having his temperature taken, to a few moments later the patient had a sudden decline in mental status, he had labored respirations, and went into cardiac arrest. He was immediately transition to room 2, CPR was started, he was noted to be in PEA, 2 rounds of CPR were performed, 2 administrations of epinephrine and a single administration of bicarb were given. Patient had ROSC, blood pressure was notably low, oxygen saturations were difficult to obtain secondary to poor peripheral vascularization. After ROSC the patient was intubated due to diminished GCS. He was started on Levophed, right-sided IJ central line was placed. Right art line was attempted to be placed, however due to severe peripheral vascular disease pulses were not found in his radial arteries bilaterally, however visualization with ultrasound showed a thickened artery, art line was placed however pressures were inaccurate at best. I did contact [facility] and discussed the case with Dr. Weiss, she accepts the patient for transfer to the ICU. SACHIN is not currently flying. She requested that we start daptomycin and meropenem secondary to the patient's history of vancomycin-resistant enteric coccus. We will also give 100 mg of Solu-Cortef. Patient has been accepted for transfer. Patient is currently on Levophed, propofol for sedation. I have extensively reviewed the treatment plan with the patient. I have addressed all patient concerns at this time. I have also discussed the plan with the admitting physician and they agree with the current assessment and plan and have agreed to assume responsibility for the patient. All parties demonstrate verbal understanding and agreement with our assessment and plan at this time. The documentation in this chart was dictated using [employer] dictation software. Please excuse any dictation errors. Procedure Arterial Line Date of Procedure: 05/06/25 Time of Procedure: 07:56 Provider that performed the procedure: Sean Simmons Indication: BP Monitoring Patient Consented: Emergent Case Standard Time Out Performed: No Sterility: Sterile Laterality: Right Insertion Site: Radial Arterial Line Catheter: 20G Arrow Arterial Line Procedure: Vessel accessed with needle, Vessel accessed with catheter over needle, Guidewire placed with ease and Catheter placed without resistance Ultrasound: Used/Image Saved Number of Attempts( see previous attempts in note section): 1 Dressing: Tegaderm Applied, Chlorhexidine Dressing, BioPatch Applied and Sutured in Place Procedure Tolerated: No Complications Procedure Outcome: Successful Procedure Description Note: Right radial art line was placed without complications, however on initial assessment of the vessel itself there was very little vascular pulsatility, however he was in a Junior arrested state. Blood pressure was notably low. Vessel was accessed without complication, however we are not able to 0 the art line. We are able to draw easily, and he continued to demonstrate equivalent capillary refill in both hands. However despite multiple attempts the system was not able to provide an accurate blood pressure. I suspect this is secondary to his known severe peripheral vascular disease, in conjunction with his periarrest status, diminish vascular status, and combined with his significant hypotension. Central Line Placement Date of Procedure: 05/06/25 Time of Procedure: 07:58 Provider that performed the procedure: Sean Simmons Indication: Central venous access, Emergent access and Hypotension Patient Consented: Emergent Case Standard Time Out Performed: No Sterility: Sterile Laterality: Right Insertion Site: Internal Jugular (IJ) Central Line Type: Triple Lumen Catheter Insertion Procedure: Vessel accessed with needle, Vessel accessed with catheter over needle, catheter advanced, Guidewire placed with ease, Dermatotomy (skin vamsi) made with scalpel, Dilator placed without resistance, Introducer/Catheter placed without resistance, Guidewire removed and Claves placed, blood withdrawn, ports flushed and clamped Ultrasound: Used/Image Saved Number of Attempts(see previous attempts in note section): 1 Post Procedure: good blood return, all ports aspirated, flushed, capped and sutured in place with 3-0 nylon Post Procedure X-Ray: tip of catheter in good position Dressing: Tegaderm applied and BioPatch applied Procedure Tolerated: No Complications Procedure Outcome: Successful Critical Care Time Critical Care Time Critical Care Time: Yes Total Critical Care Time: 100 Attestation: Upon my evaluation, this patient had a high probability of imminent or life-threatening deterioration, which required my direct attention, intervention, and personal management. I have personally provided 100 minutes of critical care time exclusive of time spent on separately billable procedures. Time includes review of laboratory data, radiology results, discussion with consultants, and monitoring for potential decompensation. Interventions were performed as documented. Discharge Plan Disposition Patient Disposition: Transfer-Acute Inpatient Care Specific Acute In Facility: [facility] Condition: Stable Discharge Details Clinical Impression: Abdominal pain, Diarrhea, Chronic wound, Fever and chills, Cardiac arrest, Blood culture positive, Bacteremia, Acute hypoxemic respiratory failure Primary Care Provider: [facility] ED Provider: Sean Simmons Home Meds and New Rx's Prescriptions: No Action sertraline 100 mg Tablet 100 mg PO QPM calcium carbonate 500 mg calcium (1,250 mg) Tablet 1,000 mg PO QHS calcitriol 0.25 mcg Capsule 0.25 mcg PO DIRECTED Rx Instructions: Mon, Wed, Fri on dialysis days cholecalciferol (vitamin D3) [Vitamin D3] 25 mcg (1,000 unit) Tablet 50 mcg PO QPM Eliquis 5 mg Tablet 5 mg PO BID Patient Comments: from discharge summary 03/19/2025 Rx Instructions: for 30 days atorvastatin [Lipitor] 40 mg tablet 40 mg PO DAILY tacrolimus [Prograf] 0.5 mg capsule 0.5 mg PO BID acetaminophen 325 mg tablet 975 mg PO TID PRN (Reason: pain) albuterol sulfate [Ventolin HFA] 90 mcg/actuation HFA aerosol inhaler 2 inh inhalation Q4H PRN (Reason: shortness of breath or wheezing) aspirin 81 mg tablet,delayed release (DR/EC) 81 mg PO QPM Patient Comments: 81 mg chewable from discharge summary 03/19/25; EC tab from discharge summary 04/17/25 cyanocobalamin (vitamin B-12) 100 mcg tablet 100 mcg PO DAILY Patient Comments: confirmation on strength needed 100 mcg or 1,000 mcg tab? nitroglycerin [Nitrostat] 0.3 mg tablet, sublingual 0.3 mg sublingual Q5M PRN (Reason: chest pain) Rx Instructions: do not exceed 3 doses per episode calcium acetate(phosphat bind) 667 mg tablet 1,334 mg PO BID AC thiamine HCl (vitamin B1) 100 mg tablet 100 mg PO DAILY ondansetron 4 mg tablet,disintegrating 4 mg PO Q6H PRN (Reason: nausea and vomiting) cyclobenzaprine 5 mg tablet 5 mg PO TID PRN (Reason: muscle spasm) Vashe 0.033 % irrigation solution 1 irrig irrigation DAILY Rx Instructions: Apply to left lower extremity wound daily dimethicone-zinc oxide 20-25 % spray,non-aerosol 1 spray topical Q4H PRN PRN (Reason: wound care) magnesium oxide 400 mg (241.3 mg magnesium) tablet 400 mg PO DAILY simethicone [Gas Relief 80 (simethicone)] 80 mg tablet,chewable 80 mg PO QID PRN (Reason: abdominal distention; gas) Nephro-Carleen 0.8 mg tablet 1 tab PO QHS gabapentin 100 mg capsule 100 mg PO TID Patient Comments: 100 mg tid per [place] med list 04/17/25; per [facility] discharge summary 03/19/25 100 mg once daily metoprolol succinate 25 mg tablet extended release 24 hr 25 mg PO DAILY pantoprazole 40 mg tablet,delayed release (DR/EC) 40 mg PO DAILY
--- NOTE | 2025-05-06 07:16 | NUR.NOTE ---
Nursing Note: Patients pressure began to drop at approximately 430am, Notified provider. Provider ordered 500cc bolus NS which was hung. Patients BP did not improve. notified provider that patients blood pressure has not improved and asked to obtain oral temp. Oral temp read 94.8F. Obtained rectal temp of 97.5f. After rolling patient for rectal temp, he was notably esparza looking and struggling to breathe. Notified provider and moved patient to room 2. ? 0540 - PEA noted on monitor. CPR initiated 0544 ? 1mg Epi given IVP 0545 ? 50mEq sodium bicarb given IVP 0546 ? 1mg epi given IVP 0550 ? 18g IV ?in R forearm established 0554 ? 20 etomidate given IVP 0554 ? 100 roccuronium given IVP 0555 ? patient intubated with 7.5 tube 0602 ? performed chest xray to confirm placement 0603 ? labs sent 0620 ? levophed initiated at 5 mcg/min 0622 ? art line placed in R wrist by Dr. Simmons 0625 ? Propofol initiated at 10 mcg/kg/min 0629 ? increased levophed to 10mcg/min 0633 ? 500cc bolus NS hung
--- NOTE | 2025-05-06 08:37 | DI.VRAD_ITS ---
PROCEDURE INFORMATION: Exam: XR Chest Exam date and time: 05/06/2025 7:01 AM Age: 79 years old Clinical indication: Screening exam; Other screening; Post central line placement TECHNIQUE: Imaging protocol: Radiologic exam of the chest. Views: 1 view. COMPARISON: CR XR PORTABLE CHEST AP 05/06/2025 6:04 AM FINDINGS: Tubes, catheters and devices: Right jugular central venous catheter identified with its tip in the superior vena cava. Endotracheal tube identified with its tip 5 cm above the claudette. Lungs: No change in the appearance of the lungs when compared to the prior study. Pleural spaces: Unremarkable. No pleural effusion. No pneumothorax. Heart/Mediastinum: Unremarkable. No cardiomegaly. Bones/joints: Unremarkable. IMPRESSION: 1. Stable chest x-ray without consolidating infiltrates. 2. Lines and tubes as detailed above. Dictated and Authenticated by: Jony Beverly MD. Orderin Troy Estrada MD
--- NOTE | 2025-05-06 08:38 | DI.VRAD_ITS ---
PROCEDURE INFORMATION: Exam: XR Chest Exam date and time: 05/06/2025 6:04 AM Age: 79 years old Clinical indication: Device placement; Post intubation TECHNIQUE: Imaging protocol: Radiologic exam of the chest. Views: 1 view. COMPARISON: CT CHEST/ABD/PEL W 05/04/2025 10:07 PM FINDINGS: Tubes, catheters and devices: Endotracheal tube is identified with its tip 5.6 cm above the claudette. Lungs: No consolidating infiltrates. Pleural spaces: Unremarkable. No pleural effusion. No pneumothorax. Heart/Mediastinum: Unremarkable. No cardiomegaly. Bones/joints: Unremarkable. IMPRESSION: 1. No acute infiltrates. 2. Endotracheal tube as detailed above. Dictated and Authenticated by: Jony Beverly MD. Orderin Troy Estrada MD
--- NOTE | 2025-05-07 09:23 | ED.FU.B_ITS ---
Date of service: 05/07/25 Time of Service: 09:24 Follow Up Plan: This patient had a blood culture resulted my shift growing Corynebacterium. Patient had been transferred to [facility] where a culture result was faxed.
== END 2025-05-06 08:02 | disposition short-term general hospital (02) ==
PROVIDERS: General Practice; Emergency Provider Student in an Organized Health Care Education/Training Program; PCP Internal Medicine
DX: S91.302A Unspecified open wound, left foot, initial encounter (principal); J96.01 Acute respiratory failure with hypoxia; I46.9 Cardiac arrest, cause unspecified; R78.81 Bacteremia; R50.9 Fever, unspecified; R19.7 Diarrhea, unspecified; R10.9 Unspecified abdominal pain; X58.XXXA Exposure to other specified factors, initial encounter
CPT/HCPCS: 00123; 36415; 36556; 71045; 74177; 76937; 80053; 83690; 84145; 85652; 86850; 86900; 86901; 87040; 87637; 96365; 96367; 96375; 99291; 36620; 71260; 83605; 83735; 84484; 85025; 85610; 85730; 86140; 87070; 87205; 89051; J0737; J1720; J2543; J2704; J3490